=== PATIENT | male | born 1945 | race Caucasian/White ===

== ENCOUNTER 2021-05-31 10:38 | Inpatient (IN) | payer MEDICARE, SELFPAY ==
[2021-05-31] VITALS (7 sets, daily range): BP systolic 145–174; BP diastolic 78–94; PULSE 68–98; RESP 13–24; TEMP 36.3–37.4; O2SAT 95–97; BMI 25.2
--- NOTE | ~2021-05-31 | XR_ITS ---
EXAMINATION: XR CHEST CLINICAL INFORMATION: Weakness COMPARISON: None TECHNIQUE: Frontal view of the chest was obtained. FINDINGS: The cardiac silhouette is upper normal in size. The thoracic aorta is calcified and tortuous. Hilar contours are unremarkable. There is atelectasis at the lung bases. No definite pneumonia is seen. There is no pleural effusion or pneumothorax. There are degenerative changes of the spine and shoulder joints. XR/XR chest 1V IMPRESSION: No evidence for acute disease in the chest. Bibasilar atelectasis. No definite pneumonia is seen.
--- NOTE | ~2021-05-31 | CT_ITS ---
EXAMINATION: CT HEAD WITHOUT CONTRAST CLINICAL INFORMATION: Aggressive behavior COMPARISON: None TECHNIQUE: Contiguous axial imaging was performed from the skull base to vertex without intravenous administration of contrast. This CT examination was performed using dose optimization techniques as appropriate, variously including the following: *Automated exposure control *Adjustment of mA and/or kV according to patient size (this includes techniques or standardized protocols for targeted exams where dose is matched to indication/reason for exam; i.e. extremities or head) *Use of iterative reconstruction technique DLP: 721 mGy-cm FINDINGS: There is no evidence of an extra-axial collection. There is no evidence of intra-axial or extra-axial hemorrhage. Ventricles and extra-axial CSF spaces are prominent suggestive of generalized atrophy. There is nonspecific periventricular white matter disease. No mass, mass effect or infarct is seen. There is evidence of atherosclerotic disease. There is arthritis at the left temporomandibular joint. Review of bone windows is otherwise normal. Visualized paranasal sinuses, mastoid air cells and middle ears are clear. CT/CT head/brain wo con IMPRESSION: No acute intracranial pathology. Generalized atrophy and nonspecific periventricular white matter disease.
--- NOTE | ~2021-05-31 | US_ITS ---
EXAMINATION: US ABDOMEN LIMITED CLINICAL INFORMATION: Elevated LFTs with the right upper quadrant pain. COMPARISON: None TECHNIQUE: Real-time imaging of the right upper quadrant abdominal viscera. FINDINGS: PANCREAS: The head and part of the body pancreas is homogeneous in echotexture. No focal lesion seen.. LIVER: The liver is enlarged measuring 20.4 cm The liver contour is normal. Parenchymal echogenicity is increased. No focal hepatic lesion. There is no intrahepatic biliary duct dilatation seen. GALLBLADDER: The gallbladder is slightly contracted without evidence of stones, sludge, polyps, wall thickening or pericholecystic fluid. COMMON BILE DUCT: Normal in caliber measuring 0.4 cm in diameter. RIGHT KIDNEY: Normal. No hydronephrosis. No renal calculi or focal parenchymal lesions. The kidney measures 10.2 cm in maximum dimension. FREE FLUID: None. US/US abdomen limited IMPRESSION: Mild hepatic steatosis and hepatomegaly. No focal lesion seen. Visualized slightly contracted gallbladder, CBD and right kidneys unremarkable.
[2021-05-31 11:16] LABS: Glucose, Whole Blood 237 mg/dL (60-115)
--- NOTE | 2021-05-31 11:17 | ED_ITS ---
HPI - General Adult General Chief complaint: General Medical Stated complaint: behavioral problems Time Seen by Provider: 05/31/21 11:06 Source: patient, EMS and interpreter for the deaf Mode of arrival: EMS Limitations: altered mental status (dementia) History of Present Illness MD complaint: increased aggression Onset (ago): week(s) (2 but much worse over past 2 days) Severity: moderate Relieving factors: none Exacerbating factors: none Associated symptoms: denies other symptoms Treatments prior to arrival: none Related Data Home Medications Medication Instructions Recorded Confirmed acetaminophen 500 mg tablet 1,000 mg PO Q8H PRN 05/31/21 05/31/21 cholecalciferol (vitamin D3) 50 50 mcg PO DAILY 05/31/21 05/31/21 mcg (2,000 unit) capsule (Vitamin D3) dulaglutide 0.75 mg/0.5 mL 0.75 mg SUBCUT QWEEK 05/31/21 05/31/21 subcutaneous pen injector (Trulicity) famotidine 40 mg tablet 40 mg PO DAILY 05/31/21 05/31/21 finasteride 5 mg tablet (Proscar) 5 mg PO DAILY 05/31/21 05/31/21 menthol 5 % topical patch (Icy Hot 1 patch TOPICAL DAILY 05/31/21 05/31/21 (menthol)) metoprolol succinate 100 mg 150 mg PO DAILY 05/31/21 05/31/21 tablet,extended release 24 hr multivitamin 1 tab PO DAILY 05/31/21 05/31/21 nitroglycerin 0.4 mg sublingual 0.4 mg SUBLINGUAL Q5M PRN 05/31/21 05/31/21 tablet pantoprazole 40 mg tablet,delayed 40 mg PO DAILY 05/31/21 05/31/21 release (Protonix) psyllium husk 3.4 gram/5.4 gram 3.4 g PO MOWEFR@0900 05/31/21 05/31/21 oral powder (Metamucil) quetiapine 25 mg tablet 25 mg PO BEDTIME 05/31/21 05/31/21 tamsulosin 0.4 mg capsule (Flomax) 0.4 mg PO DAILY@1700 05/31/21 05/31/21 trazodone 50 mg tablet 25 mg PO DAILY 05/31/21 05/31/21 trazodone 50 mg tablet 50 mg PO BEDTIME 05/31/21 05/31/21 Allergies Allergy/AdvReac Type Severity Reaction Status Date / Time No Known Allergies Allergy Verified 05/31/21 11:23 Review of Systems Review of Systems: ROS unable to be obtained due to altered mental status PMFSH Past Medical History Medical History Dementia Depression Diabetic acetonemia Hypertension Social History Social History (Updated 05/31/21 @ 11:24 by Shayy Peck DO) Housing: Assisted Living Facility Patient Tobacco Use Status: Tobacco use Unknown Advance Directives: Yes Advance Directives on File: Yes Advance Directives Date on File: 05/31/21 Physical Exam Vital Signs: Vital Signs: Last Vital Signs Temp 99.3 F 05/31/21 14:00 Pulse 70 05/31/21 14:00 Resp 13 05/31/21 14:00 BP 145/88 H 05/31/21 14:00 Pulse Ox 96 05/31/21 14:00 BMI result Body Mass Index 25.2 Appearance: Alert. Oriented X2 (place and person). No acute distress. calm but then gets upset and states they took something from him - unsure what that something is it is round Eyes: Pupils equal, round and reactive to light. ENT: Pharynx normal. Neck: Normal inspection. Neck supple. CVS: Normal heart rate and rhythm. Pulses normal. Respiratory: No respiratory distress. Breath sounds normal. Abdomen: Soft and non-tender. no grimace Skin: Skin warm and dry. Normal skin color. Normal skin turgor. Extremities: No lower extremity edema. No calf ttp Neuro: Oriented X 2. No motor deficit. No sensory deficit. Course Course Course Narrative: sister called RN and notes he was recently put on valium for anxiety and he seems more agitated on medication delta trop negative nonspecific EKG changes - no chest pain doubt ACS - medically cleared at this time for [facility] Physician observation started at 250pm. Patient placed in physician observation because the patient needed more time for crisis assessment given agitation and behavior changes following recent benzodiazepine use. At the time observation was started the patient's vitals were stable, patient is alert and but confused he is calm, Neuro: nonfocal, CV RRR, Lungs clear Medical Decision Making MDM Narrative Medical decision making narrative: 75 yo male with dementia , HTN at assisted living facility here with c/o increased aggression for two weeks sent for evaluation of [facility] at this time will need labs, UA, CXR, CT head to medically clear - if no medical issues will refer to CARE team. Lab Data Result diagrams: 05/31/21 11:48 05/31/21 11:48 Labs: Lab Results 05/31/21 05/31/21 05/31/21 Range/Units 11:13 11:48 11:48 WBC 5.5 (4.8-10.8) X10*3/uL RBC 4.71 (4.60-5.80) X10*6/uL Hgb 14.5 (14.0-18.0) g/dl Hct 41.6 L (42.0-52.0) % MCV 88.3 (80.0-98.0) fL MCH 30.8 (27.0-33.0) pg MCHC 34.9 (31.0-36.0) g/dl RDW 12.3 (11.0-16.0) % Plt Count 245 (160-400) X10*3/uL MPV 9.5 (9.4-12.4) fL Immature Gran % (Auto) 0.4 (0.0-0.4) % Neut % (Auto) 72.3 (45-73) % Lymph % (Auto) 13.5 L (20-40) % [place] % (Auto) 10.6 (2-11) % Eos % (Auto) 2.3 (0-4) % Baso % (Auto) 0.9 (0-2) % Lymph # (Auto) 0.8 L (1.2-4.9) X10*3/uL [place] # (Auto) 0.6 (0.1-1.2) X10*3/uL Eos # (Auto) 0.1 (0.0-0.4) X10*3/uL Baso # (Auto) 0.1 (0.0-0.2) X10*3/uL Abs Immat Gran (auto) 0.02 (0.00-0.03) X10*3/uL Absolute Neuts (auto) 4.0 (2.0-8.3) x10*3/uL Absolute Nucleated RBC 0.000 (0.0-0.012) X10*3/uL Nucleated RBC % (auto) 0.0 (0.0-0.2) /100WBC Sodium 135 (135-145) mmol/L Potassium 3.6 (3.3-5.1) mmol/L Chloride 103 (96-108) mmol/L Carbon Dioxide 22 (22-29) mmol/L Anion Gap 14 (12-20) BUN 10 (9-16) mg/dL Creatinine 0.79 (0.5-1.4) mg/dL Estim Creat Clear Calc 71.7 Estimated GFR > 60 POC Glucose 237 H (60-115) mg/dL Random Glucose 254 H (60-115) mg/dL Calcium 9.4 (8.4-10.2) mg/dL Magnesium 1.6 (1.6-2.6) mg/dL Total Bilirubin 1.1 H (0.0-1.0) mg/dL Direct Bilirubin 0.4 (0.0-0.5) mg/dL AST 77 H (5-37) U/L ALT 67 H (0-40) U/L Alkaline Phosphatase 79 (39-117) U/L Ammonia (13-55) umol/L Troponin I High Sens (<3.5-35.0) ng/L Total Protein 6.4 L (6.5-8.0) g/dL Albumin 4.2 (3.5-5.0) g/dL TSH (0.32-4.0) uIU/mL Urine Color Urine Appearance Urine pH (5.0-8.0) Ur Specific [place] (1.005-1.025) Urine Protein (NEG-TRACE) MG/DL Urine Glucose (UA) (NEG) MG/DL Urine Ketones (NEG) MG/DL Urine Blood (NEG) Urine Nitrite (NEG) Ur Leukocyte Esterase (NEG) Salicylates < 5.0 L (15-30) mg/dL Acetaminophen < 1 (<30) mcg/mL COVID-19 ([facility]) (Negative) COVID-19 Clin Com 05/31/21 05/31/21 05/31/21 Range/Units 11:48 11:48 11:48 WBC (4.8-10.8) X10*3/uL RBC (4.60-5.80) X10*6/uL Hgb (14.0-18.0) g/dl Hct (42.0-52.0) % MCV (80.0-98.0) fL MCH (27.0-33.0) pg MCHC (31.0-36.0) g/dl RDW (11.0-16.0) % Plt Count (160-400) X10*3/uL MPV (9.4-12.4) fL Immature Gran % (Auto) (0.0-0.4) % Neut % (Auto) (45-73) % Lymph % (Auto) (20-40) % [place] % (Auto) (2-11) % Eos % (Auto) (0-4) % Baso % (Auto) (0-2) % Lymph # (Auto) (1.2-4.9) X10*3/uL [place] # (Auto) (0.1-1.2) X10*3/uL Eos # (Auto) (0.0-0.4) X10*3/uL Baso # (Auto) (0.0-0.2) X10*3/uL Abs Immat Gran (auto) (0.00-0.03) X10*3/uL Absolute Neuts (auto) (2.0-8.3) x10*3/uL Absolute Nucleated RBC (0.0-0.012) X10*3/uL Nucleated RBC % (auto) (0.0-0.2) /100WBC Sodium (135-145) mmol/L Potassium (3.3-5.1) mmol/L Chloride (96-108) mmol/L Carbon Dioxide (22-29) mmol/L Anion Gap (12-20) BUN (9-16) mg/dL Creatinine (0.5-1.4) mg/dL Estim Creat Clear Calc Estimated GFR POC Glucose (60-115) mg/dL Random Glucose (60-115) mg/dL Calcium (8.4-10.2) mg/dL Magnesium (1.6-2.6) mg/dL Total Bilirubin (0.0-1.0) mg/dL Direct Bilirubin (0.0-0.5) mg/dL AST (5-37) U/L ALT (0-40) U/L Alkaline Phosphatase (39-117) U/L Ammonia 28 (13-55) umol/L Troponin I High Sens 8.4 (<3.5-35.0) ng/L Total Protein (6.5-8.0) g/dL Albumin (3.5-5.0) g/dL TSH (0.32-4.0) uIU/mL Urine Color Urine Appearance Urine pH (5.0-8.0) Ur Specific [place] (1.005-1.025) Urine Protein (NEG-TRACE) MG/DL Urine Glucose (UA) (NEG) MG/DL Urine Ketones (NEG) MG/DL Urine Blood (NEG) Urine Nitrite (NEG) Ur Leukocyte Esterase (NEG) Salicylates (15-30) mg/dL Acetaminophen (<30) mcg/mL COVID-19 ([facility]) Negative (Negative) COVID-19 Clin Com See Note 05/31/21 05/31/21 05/31/21 Range/Units 11:48 12:45 14:17 WBC (4.8-10.8) X10*3/uL RBC (4.60-5.80) X10*6/uL Hgb (14.0-18.0) g/dl Hct (42.0-52.0) % MCV (80.0-98.0) fL MCH (27.0-33.0) pg MCHC (31.0-36.0) g/dl RDW (11.0-16.0) % Plt Count (160-400) X10*3/uL MPV (9.4-12.4) fL Immature Gran % (Auto) (0.0-0.4) % Neut % (Auto) (45-73) % Lymph % (Auto) (20-40) % [place] % (Auto) (2-11) % Eos % (Auto) (0-4) % Baso % (Auto) (0-2) % Lymph # (Auto) (1.2-4.9) X10*3/uL [place] # (Auto) (0.1-1.2) X10*3/uL Eos # (Auto) (0.0-0.4) X10*3/uL Baso # (Auto) (0.0-0.2) X10*3/uL Abs Immat Gran (auto) (0.00-0.03) X10*3/uL Absolute Neuts (auto) (2.0-8.3) x10*3/uL Absolute Nucleated RBC (0.0-0.012) X10*3/uL Nucleated RBC % (auto) (0.0-0.2) /100WBC Sodium (135-145) mmol/L Potassium (3.3-5.1) mmol/L Chloride (96-108) mmol/L Carbon Dioxide (22-29) mmol/L Anion Gap (12-20) BUN (9-16) mg/dL Creatinine (0.5-1.4) mg/dL Estim Creat Clear Calc Estimated GFR POC Glucose (60-115) mg/dL Random Glucose (60-115) mg/dL Calcium (8.4-10.2) mg/dL Magnesium (1.6-2.6) mg/dL Total Bilirubin (0.0-1.0) mg/dL Direct Bilirubin (0.0-0.5) mg/dL AST (5-37) U/L ALT (0-40) U/L Alkaline Phosphatase (39-117) U/L Ammonia (13-55) umol/L Troponin I High Sens 10.3 (<3.5-35.0) ng/L Total Protein (6.5-8.0) g/dL Albumin (3.5-5.0) g/dL TSH 2.57 (0.32-4.0) uIU/mL Urine Color YELLOW Urine Appearance CLEAR Urine pH 6.0 (5.0-8.0) Ur Specific [place] 1.025 (1.005-1.025) Urine Protein TRACE (NEG-TRACE) MG/DL Urine Glucose (UA) 500 H (NEG) MG/DL Urine Ketones 40 (NEG) MG/DL Urine Blood NEG (NEG) Urine Nitrite NEG (NEG) Ur Leukocyte Esterase NEG (NEG) Salicylates (15-30) mg/dL Acetaminophen (<30) mcg/mL COVID-19 ([facility]) (Negative) COVID-19 Clin Com ECG Data Attestation: I personally reviewed and interpreted this ECG as follows: Interpretation: Rate: 84 Rhythm: NSR with 1st degree AVB [place]: left Normal P waves. Normal BIBI. Normal QRS complex. ST T wave : no SUZETTE< nonspecific - inverted t waves V4-V6 I and aVL qTC: slightly prolonged prior studies: none The study has been interpreted contemporaneously by me. . Discharge Plan Discharge Clinical Impression: Aggression, Dementia Patient Disposition: Still a Patient Prescriptions: No Action multivitamin Tablet 1 tab PO DAILY RF: 0 quetiapine 25 mg Tablet 25 mg PO BEDTIME RF: 0 trazodone 50 mg Tablet 25 mg PO DAILY RF: 0 trazodone 50 mg Tablet 50 mg PO BEDTIME RF: 0 famotidine 40 mg Tablet 40 mg PO DAILY RF: 0 metoprolol succinate 100 mg Tablet Extended Release 24 Hr 150 mg PO DAILY RF: 0 acetaminophen 500 mg Tablet 1,000 mg PO Q8H PRN (Reason: Pain (Scale Score 7-10)) RF: 0 tamsulosin [Flomax] 0.4 mg Capsule 0.4 mg PO DAILY@1700 RF: 0 pantoprazole [Protonix] 40 mg Tablet,Delayed Release (Dr/Ec) 40 mg PO DAILY RF: 0 nitroglycerin 0.4 mg Tablet, Sublingual 0.4 mg SUBLINGUAL Q5M PRN (Reason: Chest Pain) RF: 0 finasteride [Proscar] 5 mg Tablet 5 mg PO DAILY RF: 0 Icy Hot (menthol) 5 % Adhesive Patch,Medicated 1 patch TOPICAL DAILY RF: 0 cholecalciferol (vitamin D3) [Vitamin D3] 50 mcg (2,000 unit) Capsule 50 mcg PO DAILY RF: 0 Trulicity 0.75 mg/0.5 mL Pen Injector 0.75 mg SUBCUT QWEEK RF: 0 Metamucil 3.4 gram/5.4 gram Powder 3.4 g PO MOWEFR@0900 RF: 0
--- NOTE | 2021-05-31 11:19 | ECG_ITS ---
Test Reason : confusion Blood Pressure : / mmHG Vent. Rate : 084 BPM Atrial Rate : 084 BPM P-R Int : 208 ms QRS Dur : 094 ms QT Int : 414 ms P-R-T Axes : 038 -05 111 degrees QTc Int : 489 ms Sinus rhythm with Premature atrial complexes Nonspecific T wave abnormality Prolonged QT Abnormal ECG No previous ECGs available Referred By: Shayy Peck Electronically Signed By:AURELIA GARCIA MD
[2021-05-31 11:58] LABS: MANUAL DIFF FLAG NO
[2021-05-31 11:59] LABS: Basophils Absolute Auto 0.1 X10*3/uL (0.0-0.2); Basophils Percent Auto 0.9 % (0-2); Eosinophils Absolute Auto 0.1 X10*3/uL (0.0-0.4); Eosinophils Percent Auto 2.3 % (0-4); Hematocrit 41.6 % (42.0-52.0); Hemoglobin 14.5 g/dl (14.0-18.0); Imm Gran Abs Auto 0.02 X10*3/uL (0.00-0.03); Imm Gran Pct Auto 0.4 % (0.0-0.4); Lymphocytes Absolute Auto 0.8 X10*3/uL (1.2-4.9); Lymphocytes Percent Auto 13.5 % (20-40); Mean Corpuscular HGB Conc 34.9 g/dl (31.0-36.0); Mean Corpuscular Hemoglobin 30.8 pg (27.0-33.0); Mean Corpuscular Volume 88.3 fL (80.0-98.0); Mean Platelet Volume 9.5 fL (9.4-12.4); Monocytes Absolute Auto 0.6 X10*3/uL (0.1-1.2); Monocytes Percent Auto 10.6 % (2-11); Neutrophils Percent Auto 72.3 % (45-73); Platelet Count 245 X10*3/uL (160-400); Red Blood Count 4.71 X10*6/uL (4.60-5.80); Red Cell Distribution Width 12.3 % (11.0-16.0); White Blood Count 5.5 X10*3/uL (4.8-10.8)
[2021-05-31 12:03] LABS: Ammonia 28 umol/L (13-55)
--- NOTE | 2021-05-31 12:06 | PC.NURSE ---
contact sister melquiades olivier [phone]- sister stated in a phone call that pt had started valum last and he began hallucinating and thinking somebody was robbing him, all items were accounted for. she stated the patient had been having panic attacks due to new onset of anxiety that began in february.
[2021-05-31 12:15] LABS: Acetaminophen LAB < 1 mcg/mL (<30); Alanine Aminotransferase 67 U/L (0-40); Albumin Level 4.2 g/dL (3.5-5.0); Alkaline Phosphatase 79 U/L (39-117); Anion Gap 14 (12-20); Aspartate Amino Transferase 77 U/L (5-37); Bilirubin Direct 0.4 mg/dL (0.0-0.5); Bilirubin Total 1.1 mg/dL (0.0-1.0); Blood Urea Nitrogen 10 mg/dL (9-16); Calcium 9.4 mg/dL (8.4-10.2); Carbon Dioxide 22 mmol/L (22-29); Chloride 103 mmol/L (96-108); Creatinine Clr Calc Pharmacy 71.7; Estimated Glomerular Filt Rate > 60; Glucose Random 254 mg/dL (60-115); Magnesium 1.6 mg/dL (1.6-2.6); Potassium 3.6 mmol/L (3.3-5.1); Sodium 135 mmol/L (135-145); Total Protein 6.4 g/dL (6.5-8.0)
[2021-05-31 12:19] LABS: COVID-19 Test Negative (Negative)
--- NOTE | 2021-05-31 12:22 | PHA.MEDREC ---
Pharmacy Consult ? Medication Reconciliation Pharmacy has completed the medication reconciliation. Med rec based on list from the facility
[2021-05-31 12:25] LABS: Troponin-I High Sensitivity 8.4 ng/L (<3.5-35.0)
[2021-05-31 12:33] LABS: TSH reflex Free T4 2.57 uIU/mL (0.32-4.0)
[2021-05-31 12:56] LABS: Appearance Urine CLEAR; Color Urine YELLOW; Glucose Urine UA 500 MG/DL (NEG); Leukocyte Esterase Urine NEG (NEG); Nitrite Urine NEG (NEG); Specific Gravity - Urine 1.025 (1.005-1.025); Urine Blood NEG (NEG); Urine Ketones 40 MG/DL (NEG); Urine Protein TRACE MG/DL (NEG-TRACE)
[2021-05-31] MEDS: Magnesium Sulfate/H2O 2 GM/50 ML PIGGYBACK IV (13:15)
[2021-05-31] MEDS: 0.9 % Sodium Chloride 500 ML IV (13:16)
--- NOTE | 2021-05-31 13:16 | PC.NURSE ---
pt medicated per order
[2021-05-31 13:45] LABS: Salicylate < 5.0 mg/dL (15-30)
[2021-05-31 14:42] LABS: Troponin-I High Sensitivity 10.3 ng/L (<3.5-35.0)
--- NOTE | 2021-05-31 16:03 | PC.NURSE ---
patient sleeping, wakes to verbal stimulus, cardiac cath technician intact- nsr 70s, vss, call read within reach, will continue to monitor.
--- NOTE | 2021-05-31 16:07 | PC.NURSE ---
followed by [facility] [phone]
--- NOTE | 2021-05-31 17:49 | PC.NURSE ---
marjorien evaluated patient and spoke with patient sister, patient will become inpt for psych and goto the [facility] when bed is available
--- NOTE | 2021-05-31 21:03 | PC.NURSE ---
PATIENT WAS REPOSITION OFF HIS BOTTOM.
--- NOTE | 2021-05-31 22:20 | PC.NURSE ---
called floor to give report, will call us back
[2021-05-31] MEDS: QUEtiapine Fumarate 25 MG TABLET PO (23:34)
[2021-05-31] MEDS: traZODone HCL 50 MG TABLET PO (23:34)
[2021-06-01] MEDS: traZODone HCL 50 MG TABLET PO ×2 (01:00→20:25)
[2021-06-01 03:58] VITALS: BP 167/117; PULSE 92; RESP 20; TEMP 36.5; O2SAT 96
--- NOTE | 2021-06-01 04:12 | PC.ADMIT ---
Admitted these 75 y.o.monolingual [place] speaking,male, patient from ED w/ presenting problem of increased agitation and hallucination,that there's someone in his apt.who is trying to steal his things.His behaviors started after he was started on Valium last week.Upon admission here in the unit,Patient is alert and oriented to self only.Patient is very agitated and very anxious.Unable to do the admission process,pt. is uncooperative due to agitation.Skin is warm and dry,no open areas noted. refused a full skin assessment.Patient refused to give to staff his belongings.Patient has no c/o pain.Patient given Seroquel 25mg. and trazodone 50mg w/ little effect.Given another Trazodone 50mg. w/ some effect.Pt. has a sitter for safety.PT. is med compliant.DR. Miles Liriano and HCP-Angella Astorga notified of admission.Orders placed by Dr. Liriano.We will continue to monitor patient.
--- NOTE | 2021-06-01 12:37 | HO.PSYADMNOT ---
HPI Date of Service: 06/01/21 Chief Complaint: Psychosis HPI Narrative: pt brought to hospital after exhibiting increased paranoia at assisted living facility, with combativeness toward staff there. he had taken scissors from his day program with which to defend himself. developmentally delayed. he had been puit on valium 5 TID by PCP about amonth ago and then started having falls so the dosing was decreased to 2 TID on 05/27. sister reports his paranoia seemed to develop with the decrease in dose. on interview with MD, pt not able to rouse himself for more than a few moments at a time. he seemed to indicate he was feeling anxious. per sitter, pt was up al lnight, hypervigilantly checking his belongings on a regular basis. he had just fallen asleep when MD came to see him this morning. per staff, pt paranoid, refused meds since arrival. Past Psychiatric History: h/o 1 admission to [facility] when he had a breakdown after his father was Dxed with cancer. no known h/o SI/HI/SA/SIB/HIB. developmentally delayed seen at [facility] Medical Evaluation Reviewed: Yes [facility] Medical History Dementia Depression Diabetic acetonemia Hypertension Family History: unknown Social History: retired institutional custodian. lives in an assisted living facility. latvian speaking. has a sister who is involved in his care. raised by his mother and father in [place] until 1963, when they immigrated to the [place]. Substance History: no known substance use Trauma History: none known Diagnostics Vital Signs (24Hr): Vital Signs - 24 hr 05/31/21 14:00 05/31/21 16:00 05/31/21 18:00 Temperature 99.3 F 98.1 F 98.2 F Pulse Rate 70 72 74 Respiratory Rate 13 18 18 Blood Pressure 145/88 H 164/90 H 162/93 H Pulse Oximetry 96 96 96 05/31/21 19:40 05/31/21 21:01 06/01/21 03:58 Temperature 98.5 F 97.4 F 97.7 F Pulse Rate 78 68 92 Respiratory Rate 18 16 20 Blood Pressure 159/78 H 158/81 H 167/117 H Pulse Oximetry 97 95 96 BMI result Body Mass Index 25.2 Labs Results: 05/31/21 11:48 05/31/21 11:48 Labs: Laboratory Results - last 48 hr 05/31/21 05/31/21 05/31/21 11:13 11:48 11:48 WBC 5.5 RBC 4.71 Hgb 14.5 Hct 41.6 L MCV 88.3 MCH 30.8 MCHC 34.9 RDW 12.3 Plt Count 245 MPV 9.5 Immature Gran % (Auto) 0.4 Neut % (Auto) 72.3 Lymph % (Auto) 13.5 L Cochran % (Auto) 10.6 Eos % (Auto) 2.3 Baso % (Auto) 0.9 Lymph # (Auto) 0.8 L [place]chran # (Auto) 0.6 Eos # (Auto) 0.1 Baso # (Auto) 0.1 Abs Immat Gran (auto) 0.02 Absolute Neuts (auto) 4.0 Absolute Nucleated RBC 0.000 Nucleated RBC % (auto) 0.0 Sodium 135 Potassium 3.6 Chloride 103 Carbon Dioxide 22 Anion Gap 14 BUN 10 Creatinine 0.79 Estim Creat Clear Calc 71.7 Estimated GFR > 60 POC Glucose 237 H Random Glucose 254 H Calcium 9.4 Magnesium 1.6 Total Bilirubin 1.1 H Direct Bilirubin 0.4 AST 77 H ALT 67 H Alkaline Phosphatase 79 Ammonia Troponin I High Sens Total Protein 6.4 L Albumin 4.2 TSH Urine Color Urine Appearance Urine pH Ur Specific [place] Urine Protein Urine Glucose (UA) Urine Ketones Urine Blood Urine Nitrite Ur Leukocyte Esterase Salicylates < 5.0 L Acetaminophen < 1 COVID-19 ([facility]) COVID-19 Clin Com 05/31/21 05/31/21 05/31/21 11:48 11:48 11:48 WBC RBC Hgb Hct MCV MCH MCHC RDW Plt Count MPV Immature Gran % (Auto) Neut % (Auto) Lymph % (Auto) Cochran % (Auto) Eos % (Auto) Baso % (Auto) Lymph # (Auto) Cochran # (Auto) Eos # (Auto) Baso # (Auto) Abs Immat Gran (auto) Absolute Neuts (auto) Absolute Nucleated RBC Nucleated RBC % (auto) Sodium Potassium Chloride Carbon Dioxide Anion Gap BUN Creatinine Estim Creat Clear Calc Estimated GFR POC Glucose Random Glucose Calcium Magnesium Total Bilirubin Direct Bilirubin AST ALT Alkaline Phosphatase Ammonia 28 Troponin I High Sens 8.4 Total Protein Albumin TSH Urine Color Urine Appearance Urine pH Ur Specific [place] Urine Protein Urine Glucose (UA) Urine Ketones Urine Blood Urine Nitrite Ur Leukocyte Esterase Salicylates Acetaminophen COVID-19 ([facility]) Negative COVID-19 Clin Com See Note 05/31/21 05/31/21 05/31/21 11:48 12:45 14:17 WBC RBC Hgb Hct MCV MCH MCHC RDW Plt Count MPV Immature Gran % (Auto) Neut % (Auto) Lymph % (Auto) Cochran % (Auto) Eos % (Auto) Baso % (Auto) Lymph # (Auto) Cochran # (Auto) Eos # (Auto) Baso # (Auto) Abs Immat Gran (auto) Absolute Neuts (auto) Absolute Nucleated RBC Nucleated RBC % (auto) Sodium Potassium Chloride Carbon Dioxide Anion Gap BUN Creatinine Estim Creat Clear Calc Estimated GFR POC Glucose Random Glucose Calcium Magnesium Total Bilirubin Direct Bilirubin AST ALT Alkaline Phosphatase Ammonia Troponin I High Sens 10.3 Total Protein Albumin TSH 2.57 Urine Color YELLOW Urine Appearance CLEAR Urine pH 6.0 Ur Specific [place] 1.025 Urine Protein TRACE Urine Glucose (UA) 500 H Urine Ketones 40 Urine Blood NEG Urine Nitrite NEG Ur Leukocyte Esterase NEG Salicylates Acetaminophen COVID-19 ([facility]) COVID-19 Clin Com Imaging Radiology Impressions: ITS Impressions Chest X-Ray 05/31/21 12:18 IMPRESSION: No evidence for acute disease in the chest. Bibasilar atelectasis. No definite pneumonia is seen. Head CT 05/31/21 12:59 IMPRESSION: No acute intracranial pathology. Generalized atrophy and nonspecific periventricular white matter disease. Abdomen Ultrasound 05/31/21 13:10 IMPRESSION: Mild hepatic steatosis and hepatomegaly. No focal lesion seen. Visualized slightly contracted gallbladder, CBD and right kidneys unremarkable. Meds/Allergies Meds Home Medications Acetaminophen (Acetaminophen 325 Mg Tablet) 975 mg PO Q8H PRN PRN Reason: Pain (Scale Score 7-10) Acetaminophen (Acetaminophen 325 Mg Tablet) 650 mg PO Q6H PRN PRN Reason: Headache/Pain Mild Scale (1-3) Al Hydroxide/Mg Hydroxide (Magnesium Hydrox/Alum Hydrox 30 Ml Oral.Susp) 30 ml PO Q6H PRN PRN Reason: Heartburn/Nausea Famotidine (Famotidine 20 Mg Tablet) 40 mg PO DAILY [facility] Last Admin: 06/01/21 11:38 Dose: Not Given Documented by: Finasteride (Finasteride 5 Mg Tablet) 5 mg PO DAILY [facility] Last Admin: 06/01/21 11:38 Dose: Not Given Documented by: Magnesium Hydroxide (Milk Of Magnesia 30 Ml Oral.Susp) 30 ml PO DAILY PRN PRN Reason: Constipation Metoprolol Succinate (Metoprolol Succinate Er 50 Mg Tab.Er.24h) 150 mg PO DAILY [facility]; Protocol Last Admin: 06/01/21 11:38 Dose: Not Given Documented by: Multivitamins/Vitamin C (Multivitamin Tablet) 1 tab PO DAILY [facility] Last Admin: 06/01/21 11:38 Dose: Not Given Documented by: Nitroglycerin (Nitroglycerin 0.4 Mg Tab.Subl) 0.4 mg SUBLINGUAL Q5M PRN PRN Reason: Chest Pain Non-Formulary Medication (Dulaglutide [Trulicity]) 0.75 mg SUBCUT Q7D [facility] Non-Formulary Medication (Menthol [Icy Hot (Menthol)]) 1 patch TOPICAL DAILY [facility] Omeprazole (Omeprazole 20 Mg Capsule.Dr) 20 mg PO DAILY [facility] Last Admin: 06/01/21 11:39 Dose: Not Given Documented by: Psyllium Hydrophilic Mucilloid (Psyllium Seed 3.4 Gm Powd.Pack) 3.4 gm PO MOWEFR@0900 [facility] Quetiapine Fumarate (Quetiapine Fumarate 25 Mg Tablet) 25 mg PO BEDTIME [facility] Last Admin: 05/31/21 23:34 Dose: 25 mg Documented by: Tamsulosin HCl (Tamsulosin Hcl 0.4 Mg Capsule) 0.4 mg PO DAILY@1700 [facility] Trazodone HCl (Trazodone Hcl 25 Mg Halftab) 25 mg PO DAILY [facility] Last Admin: 06/01/21 11:39 Dose: Not Given Documented by: Trazodone HCl (Trazodone Hcl 50 Mg Tablet) 50 mg PO BEDTIME [facility] Last Admin: 05/31/21 23:34 Dose: 50 mg Documented by: Trazodone HCl (Trazodone Hcl 50 Mg Tablet) 50 mg PO BEDTIME PRN PRN Reason: Insomnia Last Admin: 06/01/21 01:00 Dose: 50 mg Documented by: Vitamin D (Cholecalciferol (Vitamin D3) 25 Mcg Tablet) 50 mcg PO DAILY [facility] Last Admin: 06/01/21 11:38 Dose: Not Given Documented by: Allergies Allergies Allergy/AdvReac Type Severity Reaction Status Date / Time No Known Allergies Allergy Verified 05/31/21 11:23 Mental Status Exam Mental Status Exam Narrative: somnolent. thick accent, garbled speech. unable to remain awake for interview. stated he was feeling scared/anxious. hospital attire. minimally cooperative. speech soft, garbled, single-word answers. thoughts linear and logical as best as could be made out. affect constricted. mood anxious. no SI/HI/AVH expressed. Assessment & Plan Assessment & Plan (1) Psychosis: Status: Acute Qualifiers: Psychosis type: unspecified psychosis type Qualified Code(s): F29 - Unspecified psychosis not due to a substance or known physiological condition Code(s): F29 - Unspecified psychosis not due to a substance or known physiological condition (2) Dementia: Status: Acute Qualifiers: Dementia behavioral disturbance: with behavioral disturbance Dementia type: unspecified type Qualified Code(s): F03.91 - Unspecified dementia with behavioral disturbance Code(s): F03.90 - Unspecified dementia without behavioral disturbance Assessment and Plan: restart low-dose valium in the event he is experiencing a withdrawal syndrome. slowly taper. increase HS seroquel to help with sleep and paranoia. Reason for continued inpatient stay Substantial Risk for: harm to others and inability to function
[2021-06-01 18:00] VITALS: BP 174/79; PULSE 75; RESP 18; TEMP 36.4; O2SAT 94
[2021-06-01] MEDS: diazePAM 2 MG TABLET PO (20:24)
[2021-06-01] MEDS: QUEtiapine Fumarate 50 MG TABLET PO (20:24)
[2021-06-01 22:47] VITALS: BP 145/75; PULSE 57
[2021-06-02 06:00] VITALS: BP 140/70; PULSE 82; RESP 16; TEMP 36; O2SAT 98
[2021-06-02] MEDS: traZODone HCL 25 MG HALFTAB PO (08:39)
[2021-06-02] MEDS: diazePAM 2 MG TABLET PO ×3 (08:40→20:31)
--- NOTE | 2021-06-02 12:15 | HO.PSYCHPN ---
Subjective Subjective Date of Service: 06/02/21 Reason For Visit: Psychosis Interim History: pt found lying in bed awake, clutching a plastic bag with personal effects in it tightly in his fist. indicates he needs to urinate, staff help him. MD returns later and attempts to speak with pt. on being asked what is bothering him he speaks unintelligibly to this information writer and gestures toward the lower half of his body. MD attempts to get him to repeat himself, but he lays motionless and mute. per staff, pt took several medications this morning. spending much of his time in bed. refusing POC. eating well. slept last NOC. Mental Status Exam Mental Status Exam Narrative: alert and awake. thick accent, garbled speech. hospital attire. minimally cooperative. speech soft, garbled. thoughts unable to be assessed; pt largely mute and otherwise unintelligible. affect constricted. mood unknown. no SI/HI/AVH expressed. Diagnostics Vital Signs (24Hr): Vital Signs - 24 hr 06/01/21 18:00 06/01/21 22:47 06/02/21 06:00 Temperature 97.6 F 96.8 F Pulse Rate 75 57 82 Respiratory Rate 18 16 Blood Pressure 174/79 H 145/75 H 140/70 H Pulse Oximetry 94 98 BMI result Body Mass Index 25.2 Labs Results: 05/31/21 11:48 05/31/21 11:48 Labs: Laboratory Results - last 48 hr 05/31/21 05/31/21 05/31/21 11:48 11:48 11:48 Sodium 135 Potassium 3.6 Chloride 103 Carbon Dioxide 22 Anion Gap 14 BUN 10 Creatinine 0.79 Estim Creat Clear Calc 71.7 Estimated GFR > 60 Random Glucose 254 H Calcium 9.4 Magnesium 1.6 Total Bilirubin 1.1 H Direct Bilirubin 0.4 AST 77 H ALT 67 H Alkaline Phosphatase 79 Troponin I High Sens 8.4 Total Protein 6.4 L Albumin 4.2 TSH Urine Color Urine Appearance Urine pH Ur Specific [place] Urine Protein Urine Glucose (UA) Urine Ketones Urine Blood Urine Nitrite Ur Leukocyte Esterase Salicylates < 5.0 L Acetaminophen < 1 COVID-19 ([facility]) Negative COVID-19 Clin Com See Note 05/31/21 05/31/21 05/31/21 11:48 12:45 14:17 Sodium Potassium Chloride Carbon Dioxide Anion Gap BUN Creatinine Estim Creat Clear Calc Estimated GFR Random Glucose Calcium Magnesium Total Bilirubin Direct Bilirubin AST ALT Alkaline Phosphatase Troponin I High Sens 10.3 Total Protein Albumin TSH 2.57 Urine Color YELLOW Urine Appearance CLEAR Urine pH 6.0 Ur Specific [place] 1.025 Urine Protein TRACE Urine Glucose (UA) 500 H Urine Ketones 40 Urine Blood NEG Urine Nitrite NEG Ur Leukocyte Esterase NEG Salicylates Acetaminophen COVID-19 ([facility]) COVID-19 Clin Com Imaging Radiology Impressions: ITS Impressions Chest X-Ray 05/31/21 12:18 IMPRESSION: No evidence for acute disease in the chest. Bibasilar atelectasis. No definite pneumonia is seen. Head CT 05/31/21 12:59 IMPRESSION: No acute intracranial pathology. Generalized atrophy and nonspecific periventricular white matter disease. Abdomen Ultrasound 05/31/21 13:10 IMPRESSION: Mild hepatic steatosis and hepatomegaly. No focal lesion seen. Visualized slightly contracted gallbladder, CBD and right kidneys unremarkable. Medications Medications Current Medications Acetaminophen (Acetaminophen 325 Mg Tablet) 975 mg PO Q8H PRN PRN Reason: Pain (Scale Score 7-10) Acetaminophen (Acetaminophen 325 Mg Tablet) 650 mg PO Q6H PRN PRN Reason: Headache/Pain Mild Scale (1-3) Al Hydroxide/Mg Hydroxide (Magnesium Hydrox/Alum Hydrox 30 Ml Oral.Susp) 30 ml PO Q6H PRN PRN Reason: Heartburn/Nausea Diazepam (Diazepam 2 Mg Tablet) 2 mg PO TID [facility] Last Admin: 06/02/21 08:40 Dose: 2 mg Documented by: Famotidine (Famotidine 20 Mg Tablet) 40 mg PO DAILY [facility] Last Admin: 06/02/21 10:06 Dose: Not Given Documented by: Finasteride (Finasteride 5 Mg Tablet) 5 mg PO DAILY [facility] Last Admin: 06/02/21 10:07 Dose: Not Given Documented by: Magnesium Hydroxide (Milk Of Magnesia 30 Ml Oral.Susp) 30 ml PO DAILY PRN PRN Reason: Constipation Metoprolol Succinate (Metoprolol Succinate Er 50 Mg Tab.Er.24h) 150 mg PO DAILY [facility]; Protocol Last Admin: 06/02/21 10:07 Dose: Not Given Documented by: Multivitamins/Vitamin C (Multivitamin Tablet) 1 tab PO DAILY [facility] Last Admin: 06/02/21 10:07 Dose: Not Given Documented by: Nitroglycerin (Nitroglycerin 0.4 Mg Tab.Subl) 0.4 mg SUBLINGUAL Q5M PRN PRN Reason: Chest Pain Omeprazole (Omeprazole 20 Mg Capsule.Dr) 20 mg PO DAILY [facility] Last Admin: 06/02/21 10:07 Dose: Not Given Documented by: Psyllium Hydrophilic Mucilloid (Psyllium Seed 3.4 Gm Powd.Pack) 3.4 gm PO MOWEFR@0900 [facility] Quetiapine Fumarate (Quetiapine Fumarate 50 Mg Tablet) 50 mg PO BEDTIME [facility] Last Admin: 06/01/21 20:24 Dose: 50 mg Documented by: Tamsulosin HCl (Tamsulosin Hcl 0.4 Mg Capsule) 0.4 mg PO DAILY@1700 [facility] Last Admin: 06/01/21 17:51 Dose: Not Given Documented by: Trazodone HCl (Trazodone Hcl 25 Mg Halftab) 25 mg PO DAILY [facility] Last Admin: 06/02/21 08:39 Dose: 25 mg Documented by: Trazodone HCl (Trazodone Hcl 50 Mg Tablet) 50 mg PO BEDTIME [facility] Last Admin: 06/01/21 20:25 Dose: 50 mg Documented by: Trazodone HCl (Trazodone Hcl 50 Mg Tablet) 50 mg PO BEDTIME PRN PRN Reason: Insomnia Last Admin: 06/01/21 01:00 Dose: 50 mg Documented by: Vitamin D (Cholecalciferol (Vitamin D3) 25 Mcg Tablet) 50 mcg PO DAILY [facility] Last Admin: 06/02/21 10:06 Dose: Not Given Documented by: Allergies Allergies Allergy/AdvReac Type Severity Reaction Status Date / Time No Known Allergies Allergy Verified 05/31/21 11:23 Assessment & Plan Assessment & Plan (1) Psychosis: Qualifiers: Psychosis type: unspecified psychosis type Qualified Code(s): F29 - Unspecified psychosis not due to a substance or known physiological condition Status: Acute Code(s): F29 - Unspecified psychosis not due to a substance or known physiological condition (2) Dementia: Qualifiers: Dementia behavioral disturbance: with behavioral disturbance Dementia type: unspecified type Qualified Code(s): F03.91 - Unspecified dementia with behavioral disturbance Status: Acute Code(s): F03.90 - Unspecified dementia without behavioral disturbance Assessment and Plan: restart low-dose valium in the event he is experiencing a withdrawal syndrome. slowly taper. increase HS seroquel to help with sleep and paranoia. I spent minutes with the patient and/or on the patient floor today, greater than?50% of which was spent counseling/coordinating care. Reason for contiued inpatient stay Substantial Risk for: harm to others, inability to function and rapid decompensation
[2021-06-02 18:00] VITALS: BP 167/85; PULSE 99; RESP 18; TEMP 36.6; O2SAT 96
[2021-06-02 20:05] LABS: Glucose, Whole Blood 248 mg/dL (60-115)
[2021-06-02] MEDS: traZODone HCL 50 MG TABLET PO (20:31)
[2021-06-02] MEDS: QUEtiapine Fumarate 50 MG TABLET PO (20:32)
[2021-06-03 06:00] VITALS: BP 147/79; PULSE 85; RESP 17; TEMP 36.1; O2SAT 97
--- NOTE | 2021-06-03 10:46 | HO.PSYCHPN ---
Subjective Subjective Date of Service: 06/03/21 Reason For Visit: Psychosis Subjective Notes: Conditional Voluntary Interim History: the nursing staff reported patient has been isolative. He has problems eating sings he does not have teeth. His mostly Vincentian speaking but according to the chart he can understand Sudanese. On interview, the patient was seclusive with poor eye contact but no aggressive behavior. We will try to gather more collateral information Mental Status Exam Mental Status Exam Patient Appearance: Disheveled Patient Orientation: Person Level of Consciousness: Awake Patient Behavior: Guarded, Passive and Suspicious Mood Description: Constricted Affect Description: Constricted Patient Cognition Impaired: Yes Ability to Follow Directions: Fair Speech Pattern: Inappropriate Hallucinations: None Delusions: Paranoid Ideation Thought Process: Linear Thought Content: positive for Circumstantial Judgement: Fair Diagnostics Vital Signs (24Hr): Vital Signs - 24 hr 06/02/21 18:00 06/03/21 06:00 Temperature 97.9 F 96.9 F Pulse Rate 99 85 Respiratory Rate 18 17 Blood Pressure 167/85 H 147/79 H Pulse Oximetry 96 97 BMI result Body Mass Index 25.2 Labs Results: 05/31/21 11:48 05/31/21 11:48 Labs: Laboratory Results - last 48 hr 06/02/21 19:58 POC Glucose 248 H Imaging Radiology Impressions: ITS Impressions Chest X-Ray 05/31/21 12:18 IMPRESSION: No evidence for acute disease in the chest. Bibasilar atelectasis. No definite pneumonia is seen. Head CT 05/31/21 12:59 IMPRESSION: No acute intracranial pathology. Generalized atrophy and nonspecific periventricular white matter disease. Abdomen Ultrasound 05/31/21 13:10 IMPRESSION: Mild hepatic steatosis and hepatomegaly. No focal lesion seen. Visualized slightly contracted gallbladder, CBD and right kidneys unremarkable. Medications Medications Current Medications Acetaminophen (Acetaminophen 325 Mg Tablet) 975 mg PO Q8H PRN PRN Reason: Pain (Scale Score 7-10) Acetaminophen (Acetaminophen 325 Mg Tablet) 650 mg PO Q6H PRN PRN Reason: Headache/Pain Mild Scale (1-3) Al Hydroxide/Mg Hydroxide (Magnesium Hydrox/Alum Hydrox 30 Ml Oral.Susp) 30 ml PO Q6H PRN PRN Reason: Heartburn/Nausea Diazepam (Diazepam 2 Mg Tablet) 2 mg PO TID [facility] Last Admin: 06/02/21 20:31 Dose: 2 mg Documented by: Famotidine (Famotidine 20 Mg Tablet) 40 mg PO DAILY [facility] Last Admin: 06/02/21 10:06 Dose: Not Given Documented by: Finasteride (Finasteride 5 Mg Tablet) 5 mg PO DAILY [facility] Last Admin: 06/02/21 10:07 Dose: Not Given Documented by: Magnesium Hydroxide (Milk Of Magnesia 30 Ml Oral.Susp) 30 ml PO DAILY PRN PRN Reason: Constipation Metoprolol Succinate (Metoprolol Succinate Er 50 Mg Tab.Er.24h) 150 mg PO DAILY [facility]; Protocol Last Admin: 06/02/21 10:07 Dose: Not Given Documented by: Multivitamins/Vitamin C (Multivitamin Tablet) 1 tab PO DAILY [facility] Last Admin: 06/02/21 10:07 Dose: Not Given Documented by: Nitroglycerin (Nitroglycerin 0.4 Mg Tab.Subl) 0.4 mg SUBLINGUAL Q5M PRN PRN Reason: Chest Pain Omeprazole (Omeprazole 20 Mg Capsule.Dr) 20 mg PO DAILY [facility] Last Admin: 06/02/21 10:07 Dose: Not Given Documented by: Psyllium Hydrophilic Mucilloid (Psyllium Seed 3.4 Gm Powd.Pack) 3.4 gm PO MOWEFR@0900 [facility] Quetiapine Fumarate (Quetiapine Fumarate 50 Mg Tablet) 50 mg PO BEDTIME [facility] Last Admin: 06/02/21 20:32 Dose: 50 mg Documented by: Tamsulosin HCl (Tamsulosin Hcl 0.4 Mg Capsule) 0.4 mg PO DAILY@1700 [facility] Last Admin: 06/02/21 17:20 Dose: Not Given Documented by: Trazodone HCl (Trazodone Hcl 25 Mg Halftab) 25 mg PO DAILY [facility] Last Admin: 06/02/21 08:39 Dose: 25 mg Documented by: Trazodone HCl (Trazodone Hcl 50 Mg Tablet) 50 mg PO BEDTIME [facility] Last Admin: 06/02/21 20:31 Dose: 50 mg Documented by: Trazodone HCl (Trazodone Hcl 50 Mg Tablet) 50 mg PO BEDTIME PRN PRN Reason: Insomnia Last Admin: 06/01/21 01:00 Dose: 50 mg Documented by: Vitamin D (Cholecalciferol (Vitamin D3) 25 Mcg Tablet) 50 mcg PO DAILY [facility] Last Admin: 06/02/21 10:06 Dose: Not Given Documented by: Allergies Allergies Allergy/AdvReac Type Severity Reaction Status Date / Time No Known Allergies Allergy Verified 05/31/21 11:23 Assessment & Plan Assessment & Plan (1) Psychosis: Qualifiers: Psychosis type: unspecified psychosis type Qualified Code(s): F29 - Unspecified psychosis not due to a substance or known physiological condition Status: Acute Code(s): F29 - Unspecified psychosis not due to a substance or known physiological condition (2) Dementia: Qualifiers: Dementia behavioral disturbance: with behavioral disturbance Dementia type: unspecified type Qualified Code(s): F03.91 - Unspecified dementia with behavioral disturbance Status: Acute Code(s): F03.90 - Unspecified dementia without behavioral disturbance Assessment and Plan: the patient is an elderly male, mostly Vincentian speaking with a long history of developmental problems and psychosis. The patient was brought into this facility since he become violent and aggressive after the taper of Valium. Plan 1. Keep Valium 2 mg p.o. t.i.d.. 2. Keep Seroquel at the same dose. 3. Gather collateral information I spent minutes with the patient and/or on the patient floor today, greater than?50% of which was spent counseling/coordinating care. Reason for contiued inpatient stay Substantial Risk for: inability to function, rapid decompensation and med/psych decompensation
--- NOTE | 2021-06-03 13:59 | MHC.CLN ---
Addendum entered by Leatha Parker RD 06/03/21 14:38: PER UNIT STAFF, PATIENT EATING POORLY BUT WILL DRINK SUPPLEMENT. ADDING GLUCERNA TID TO PROVIDE 710 KCAL, 30 G PROTEIN. 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 PATIENT WITH RECENT DX OF DIABETES AND HAD BEEN TAKING TRULICITY. HAD BEEN RECEIVING SOFT FOODS. DIET=DIABETIC 2000 KCAL, NDD2.
[2021-06-03 18:00] VITALS: BP 134/92; PULSE 95; RESP 18; TEMP 36.6; O2SAT 92
[2021-06-03 19:53] LABS: Glucose, Whole Blood 311 mg/dL (60-115)
[2021-06-03] MEDS: diazePAM 2 MG TABLET PO (20:33)
[2021-06-03] MEDS: traZODone HCL 50 MG TABLET PO (20:33)
[2021-06-03] MEDS: QUEtiapine Fumarate 50 MG TABLET PO (20:33)
[2021-06-03] MEDS: Loperamide HCl 2 MG CAPSULE 4 MG PO (21:14)
[2021-06-04 06:00] VITALS: BP 146/72; PULSE 79; RESP 17; TEMP 36.1; O2SAT 97
[2021-06-04 07:33] LABS: Glucose, Whole Blood 184 mg/dL (60-115)
[2021-06-04] MEDS: Famotidine 20 MG TABLET 40 MG PO (08:00)
[2021-06-04] MEDS: traZODone HCL 25 MG HALFTAB PO (08:00)
[2021-06-04] MEDS: Finasteride 5 MG TABLET PO (08:00)
[2021-06-04] MEDS: Multivitamin TABLET 1 TAB PO (08:00)
[2021-06-04] MEDS: diazePAM 2 MG TABLET PO ×3 (08:00→20:30)
[2021-06-04] MEDS: Cholecalciferol (Vitamin D3) 25 MCG TABLET 50 MCG PO (08:00)
[2021-06-04] MEDS: Omeprazole 20 MG CAPSULE.DR PO (08:00)
[2021-06-04] MEDS: Metoprolol Succinate ER 50 MG TAB.ER.24H 150 MG PO (08:00)
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
[2021-06-04] MEDS: Tamsulosin HCL 0.4 MG CAPSULE PO (15:56)
[2021-06-04 18:00] VITALS: BP 124/71; PULSE 83; RESP 16; TEMP 36.6; O2SAT 93
[2021-06-04 18:11] LABS: IDNOW Serial# 9DD0AD1C
[2021-06-04 18:13] LABS: COVID-19 Test Negative (Negative)
[2021-06-04] MEDS: traZODone HCL 50 MG TABLET PO (20:31)
[2021-06-04] MEDS: QUEtiapine Fumarate 50 MG TABLET PO (20:31)
[2021-06-04 22:56] LABS: Glucose, Whole Blood 234 mg/dL (60-115)
[2021-06-05 08:34] VITALS: BP 141/72; PULSE 89; RESP 16; TEMP 36.3; O2SAT 96
[2021-06-05] MEDS: Famotidine 20 MG TABLET 40 MG PO (08:44)
[2021-06-05] MEDS: Finasteride 5 MG TABLET PO (08:44)
[2021-06-05] MEDS: Cholecalciferol (Vitamin D3) 25 MCG TABLET 50 MCG PO (08:44)
[2021-06-05] MEDS: QUEtiapine Fumarate 25 MG TABLET PO (08:44)
[2021-06-05] MEDS: Metoprolol Succinate ER 50 MG TAB.ER.24H 150 MG PO (08:44)
[2021-06-05] MEDS: diazePAM 2 MG TABLET PO ×2 (08:45→20:39)
[2021-06-05] MEDS: traZODone HCL 25 MG HALFTAB PO (08:45)
[2021-06-05] MEDS: Multivitamin TABLET 1 TAB PO (08:45)
[2021-06-05] MEDS: Omeprazole 20 MG CAPSULE.DR PO (08:45)
--- NOTE | 2021-06-05 09:09 | PC.NURSE ---
Patient is unable to answer questions at this time. Not able to engage in assessment. Smoking history is unknown. Patient does not answer when asked if he was/is a smoker or would like nicotine replacement.
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
[2021-06-05 11:32] LABS: Glucose, Whole Blood 358 mg/dL (60-115)
[2021-06-05] MEDS: Insulin Lispro 100 UNIT/ML 3 ML VIAL SUBCUT ×3 (11:32→20:36)
[2021-06-05 13:26] LABS: COVID-19 Test Negative (Negative)
--- NOTE | 2021-06-05 13:35 | PC.NURSE ---
Patient was sitting in ANISH chair being feed lunch when he began coughing uncontrollably. To rule out aspiration MD was notified and has not yet responded re:chest xray. Covid swab was ordered with a negative result. Patient resting comfortably in bed at this time.
[2021-06-05 16:24] LABS: Glucose, Whole Blood 185 mg/dL (60-115)
[2021-06-05] MEDS: Tamsulosin HCL 0.4 MG CAPSULE PO (17:05)
[2021-06-05] MEDS: risperiDONE 0.5 MG TABLET PO ×2 (17:06→20:38)
[2021-06-05 20:20] VITALS: BP 127/62; PULSE 88; RESP 18; TEMP 36.4; O2SAT 95
[2021-06-05 20:35] LABS: Glucose, Whole Blood 253 mg/dL (60-115)
[2021-06-05] MEDS: traZODone HCL 50 MG TABLET PO (20:38)
[2021-06-05] MEDS: QUEtiapine Fumarate 50 MG TABLET PO (20:38)
[2021-06-06 06:32] LABS: Glucose, Whole Blood 197 mg/dL (60-115)
[2021-06-06 07:00] VITALS: BMI 21.6
[2021-06-06 07:51] LABS: Glucose, Whole Blood 235 mg/dL (60-115)
[2021-06-06] MEDS: Insulin Lispro 100 UNIT/ML 3 ML VIAL SUBCUT ×4 (08:23→20:03)
[2021-06-06] MEDS: Multivitamin TABLET 1 TAB PO (08:43)
[2021-06-06] MEDS: Finasteride 5 MG TABLET PO (08:43)
[2021-06-06] MEDS: Cholecalciferol (Vitamin D3) 25 MCG TABLET 50 MCG PO (08:43)
[2021-06-06] MEDS: diazePAM 2 MG TABLET PO ×2 (08:44→22:17)
[2021-06-06] MEDS: Metoprolol Succinate ER 50 MG TAB.ER.24H 150 MG PO (08:44)
[2021-06-06] MEDS: Famotidine 20 MG TABLET 40 MG PO (08:44)
[2021-06-06] MEDS: traZODone HCL 25 MG HALFTAB PO (08:44)
[2021-06-06] MEDS: risperiDONE 0.5 MG TABLET PO (08:44)
[2021-06-06 11:04] LABS: Glucose, Whole Blood 377 mg/dL (60-115)
[2021-06-06] MEDS: Omeprazole 20 MG CAPSULE.DR PO (11:14)
[2021-06-06 11:25] VITALS: BP 126/60; PULSE 100; RESP 18; TEMP 36.7; O2SAT 95
--- NOTE | 2021-06-06 11:40 | MHC.SL.SWA ---
Speech Pathologist Impression: Within Functional Limits Risk of Aspiration Due to: Reduced Cognition Dysphasia Diet Status: No Change Liquid Consistency and Strategies for Safe Swallow: Liquid Intake Recommendation: Thin Liquid Intake Strategies: Small Sips Solid Food Consistency: Dietary Recommendations: Grnd/Mech Altered (NDD2) Additional Modifications to Solid Foods: Continue current Diet due to Pt w/o dentures and is currently edentulous. Oral Medication Intake: Whole with Liquid Compensatory Strategies and Precautions to be Taken for Safe Swallow: Sitting Upright (90 deg) Supervision While Eating and Drinking for Safe Swallow: Total Supervision (1:1) Foods to Avoid: Swallowing Recommended Treatments: Recommendation for Speech: Discharged with Instructions for Home Use Comment: Pt presents w/swallow function WNL. Pt at risk for aspiration primarily due to impulsive behavior, tendencies to take large quantities of food or liquid per presentation, so will required supervision/monitoring during all meals. As Pt is edentulous and currently w/o prescribed dentures, recommend Pt continue on current diet of Ground Mechanical (NDD2) w/ thin liquids. Pt can have pills whole w/liquid (No change from current diet/med administration). Recommend D/C from Speech at this time. Frequency/Duration: D/C Speech Date Range for Service Req: Timeline to reassess: Design Sales Consultant Clinican/Clinical Fellow: No Supervisory Statement: I have reviewed and agree with the student/clinical fellow's documentation: N/A Speech Language Pathologist: Yodit Bynum M.A., CCC-PARTS CHASER
--- NOTE | 2021-06-06 14:51 | HO.PSYCHPN ---
Subjective Subjective Date of Service: 06/06/21 Reason For Visit: Psychosis Subjective Notes: Conditional Voluntary Interim History: the nursing staff reported that the speech and swallow tests came back negative. There were reports that he was coughing while eating but it seems that it was negative. Chest x-ray was negative. Still, he seclusive and slightly psychotic but more active in the evening, loud and now he walks with the help of a walker. Communication with the patient is very difficult because he speaks a dialect of Comoran. He was loud calling for his sister in the evening. It seems that he is more active with the change of antipsychotics to Risperdal. 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 and since then he had cognitive impairment Mental Status Exam Mental Status Exam Patient Appearance: Disheveled and Unkempt Patient Orientation: Person and Situation Level of Consciousness: Awake Patient Behavior: Guarded, Passive and Suspicious Mood Description: Suspicious and Hostile Affect Description: Labile Patient Cognition Impaired: Yes Ability to Follow Directions: Good Speech Pattern: Loud Hallucinations: None Delusions: Paranoid Ideation Thought Process: Illogical and Distracted Diagnostics Vital Signs (24Hr): Vital Signs - 24 hr 06/05/21 20:20 06/06/21 11:25 Temperature 97.6 F 98.0 F Pulse Rate 88 100 Respiratory Rate 18 18 Blood Pressure 127/62 126/60 Pulse Oximetry 95 95 BMI result Body Mass Index 21.6 Labs Results: 05/31/21 11:48 05/31/21 11:48 Labs: Laboratory Results - last 48 hr 06/04/21 06/04/21 06/05/21 22:47 Unknown 11:25 POC Glucose 234 H 358 H* COVID-19 ([facility]) Negative COVID-19 Clin Com See Note 06/05/21 06/05/21 06/05/21 12:55 16:18 20:31 POC Glucose 185 H 253 H COVID-19 ([facility]) Negative COVID-19 Clin Com See Note 06/06/21 06/06/21 06/06/21 06:29 07:42 10:57 POC Glucose 197 H 235 H 377 H* COVID-19 ([facility]) COVID-19 Clin Com Imaging Radiology Impressions: ITS Impressions Chest X-Ray 05/31/21 12:18 IMPRESSION: No evidence for acute disease in the chest. Bibasilar atelectasis. No definite pneumonia is seen. Head CT 05/31/21 12:59 IMPRESSION: No acute intracranial pathology. Generalized atrophy and nonspecific periventricular white matter disease. Abdomen Ultrasound 05/31/21 13:10 IMPRESSION: Mild hepatic steatosis and hepatomegaly. No focal lesion seen. Visualized slightly contracted gallbladder, CBD and right kidneys unremarkable. Medications Medications Current Medications Acetaminophen (Acetaminophen 325 Mg Tablet) 975 mg PO Q8H PRN PRN Reason: Pain (Scale Score 7-10) Acetaminophen (Acetaminophen 325 Mg Tablet) 650 mg PO Q6H PRN PRN Reason: Headache/Pain Mild Scale (1-3) Al Hydroxide/Mg Hydroxide (Magnesium Hydrox/Alum Hydrox 30 Ml Oral.Susp) 30 ml PO Q6H PRN PRN Reason: Heartburn/Nausea Dextrose (Dextrose 50 % 25 Gm/50 Ml Vial) 25 gm IVPUSH Q15M PRN; Protocol PRN Reason: per Hypoglycemia Standing Ord. Diazepam (Diazepam 2 Mg Tablet) 2 mg PO BID [facility] Last Admin: 06/06/21 08:44 Dose: 2 mg Documented by: Famotidine (Famotidine 20 Mg Tablet) 40 mg PO DAILY [facility] Last Admin: 06/06/21 08:44 Dose: 40 mg Documented by: Finasteride (Finasteride 5 Mg Tablet) 5 mg PO DAILY [facility] Last Admin: 06/06/21 08:43 Dose: 5 mg Documented by: Glucose (Glucose Gel 15 Gm Gel..Gram.) 15 gm PO Q15M PRN; Protocol PRN Reason: per Hypoglycemia Standing Ord. Insulin Human Lispro (Insulin Lispro 100 Unit/Ml 3 Ml Vial) 0 unit SUBCUT QIDACHS [facility]; Protocol Last Admin: 06/06/21 11:15 Dose: 10 unit Documented by: Loperamide HCl (Loperamide Hcl 2 Mg Capsule) 4 mg PO Q6H PRN PRN Reason: diarrhea Last Admin: 06/03/21 21:14 Dose: 4 mg Documented by: Magnesium Hydroxide (Milk Of Magnesia 30 Ml Oral.Susp) 30 ml PO DAILY PRN PRN Reason: Constipation Metoprolol Succinate (Metoprolol Succinate Er 50 Mg Tab.Er.24h) 150 mg PO DAILY [facility]; Protocol Last Admin: 06/06/21 08:44 Dose: 150 mg Documented by: Multivitamins/Vitamin C (Multivitamin Tablet) 1 tab PO DAILY [facility] Last Admin: 06/06/21 08:43 Dose: 1 tab Documented by: Nitroglycerin (Nitroglycerin 0.4 Mg Tab.Subl) 0.4 mg SUBLINGUAL Q5M PRN PRN Reason: Chest Pain Omeprazole (Omeprazole 20 Mg Capsule.Dr) 20 mg PO DAILY [facility] Last Admin: 06/06/21 11:14 Dose: 20 mg Documented by: Psyllium Hydrophilic Mucilloid (Psyllium Seed 3.4 Gm Powd.Pack) 3.4 gm PO MOWEFR@0900 [facility] Last Admin: 06/05/21 08:50 Dose: 3.4 gm Documented by: Quetiapine Fumarate (Quetiapine Fumarate 50 Mg Tablet) 50 mg PO BEDTIME [facility] Last Admin: 06/05/21 20:38 Dose: 50 mg Documented by: Tamsulosin HCl (Tamsulosin Hcl 0.4 Mg Capsule) 0.4 mg PO DAILY@1700 [facility] Last Admin: 06/05/21 17:05 Dose: 0.4 mg Documented by: Trazodone HCl (Trazodone Hcl 25 Mg Halftab) 25 mg PO DAILY [facility] Last Admin: 06/06/21 08:44 Dose: 25 mg Documented by: Trazodone HCl (Trazodone Hcl 50 Mg Tablet) 50 mg PO BEDTIME [facility] Last Admin: 06/05/21 20:38 Dose: 50 mg Documented by: Trazodone HCl (Trazodone Hcl 50 Mg Tablet) 50 mg PO BEDTIME PRN PRN Reason: Insomnia Last Admin: 06/01/21 01:00 Dose: 50 mg Documented by: Vitamin D (Cholecalciferol (Vitamin D3) 25 Mcg Tablet) 50 mcg PO DAILY [facility] Last Admin: 06/06/21 08:43 Dose: 50 mcg Documented by: Allergies Allergies Allergy/AdvReac Type Severity Reaction Status Date / Time lactose AdvReac Diarrhea Verified 06/04/21 13:17 Assessment & Plan Assessment & Plan (1) Psychosis: Qualifiers: Psychosis type: unspecified psychosis type Qualified Code(s): F29 - Unspecified psychosis not due to a substance or known physiological condition Status: Acute Code(s): F29 - Unspecified psychosis not due to a substance or known physiological condition (2) Dementia: Qualifiers: Dementia behavioral disturbance: with behavioral disturbance Dementia type: unspecified type Qualified Code(s): F03.91 - Unspecified dementia with behavioral disturbance Status: Acute Code(s): F03.90 - Unspecified dementia without behavioral disturbance Assessment and Plan: the patient is an elderly male, mostly Comoran speaking with a long history of developmental problems and psychosis. The patient was brought into this facility since he become violent and aggressive after the taper of Valium. Plan 1. Taper Valium up to 2 mg p.o. b.i.d. 2. Diiscontinue Seroquel up to 25 mg po bid but keep Seroquel 50 mg po qhs. 3. Gather collateral information. today we will have a family meeting over the phone. 4. increase Risperdal up to 0.75 mg p.o. t.i.d. to target psychosis I spent minutes with the patient and/or on the patient floor today, greater than?50% of which was spent counseling/coordinating care. Reason for contiued inpatient stay Substantial Risk for: inability to function, rapid decompensation and med/psych decompensation
[2021-06-06 16:03] LABS: Glucose, Whole Blood 294 mg/dL (60-115)
[2021-06-06] MEDS: risperiDONE 0.25 MG TABLET 0.75 MG PO ×2 (16:37→19:48)
[2021-06-06] MEDS: Tamsulosin HCL 0.4 MG CAPSULE PO (16:37)
[2021-06-06 19:31] VITALS: RESP 16; TEMP 36.7
[2021-06-06] MEDS: traZODone HCL 50 MG TABLET PO (19:48)
[2021-06-06] MEDS: QUEtiapine Fumarate 50 MG TABLET PO (19:48)
[2021-06-06 20:02] LABS: Glucose, Whole Blood 280 mg/dL (60-115)
[2021-06-07 06:08] LABS: Glucose, Whole Blood 198 mg/dL (60-115)
[2021-06-07 08:00] VITALS: BP 95/61; PULSE 83; RESP 15; TEMP 36.2; O2SAT 96
[2021-06-07] MEDS: traZODone HCL 25 MG HALFTAB PO (09:04)
[2021-06-07 12:00] LABS: Glucose, Whole Blood 266 mg/dL (60-115)
[2021-06-07] MEDS: Insulin Lispro 100 UNIT/ML 3 ML VIAL SUBCUT ×3 (12:13→20:18)
--- NOTE | 2021-06-07 13:25 | HO.PSYCHPN ---
Subjective Subjective Date of Service: 06/07/21 Reason For Visit: Psychosis Subjective Notes: Conditional Voluntary Interim History: The nursing staff reported that the patient has been calling for his sister, he slept well last night. He has been loud but easily redirectable. The social problems specialist reported that she contact the therapist and apparently her sisters were interfering with the treatment and stopping medications without doctor's approval. On interview, the patient refused to interact in the interview. No evidence of EPS Mental Status Exam Mental Status Exam Patient Appearance: Disheveled and Unkempt Patient Orientation: Person Level of Consciousness: Drowsy Patient Behavior: Guarded and Suspicious Mood Description: Depressed Affect Description: Constricted Patient Cognition Impaired: Yes Ability to Follow Directions: Fair Speech Pattern: No Speech Hallucinations: None Delusions: Not Present Thought Process: Illogical Thought Content: positive for [place] Judgement: Poor Diagnostics Vital Signs (24Hr): Vital Signs - 24 hr 06/06/21 19:31 06/07/21 08:00 Temperature 98.1 F 97.2 F Pulse Rate 83 Respiratory Rate 16 15 Blood Pressure 95/61 Pulse Oximetry 96 BMI result Body Mass Index 21.6 Labs Results: 05/31/21 11:48 05/31/21 11:48 Labs: Laboratory Results - last 48 hr 06/05/21 06/05/21 06/05/21 12:55 16:18 20:31 POC Glucose 185 H 253 H COVID-19 ([facility]) Negative COVID-19 Clin Com See Note 06/06/21 06/06/21 06/06/21 06:29 07:42 10:57 POC Glucose 197 H 235 H 377 H* COVID-19 ([facility]) COVID-19 Clin Com 06/06/21 06/06/21 06/07/21 15:58 19:56 05:59 POC Glucose 294 H 280 H 198 H COVID-19 ([facility]) COVID-19 Clin Com 06/07/21 11:56 POC Glucose 266 H COVID-19 ([facility]) COVID-19 Clin Com Imaging Radiology Impressions: ITS Impressions Chest X-Ray 05/31/21 12:18 IMPRESSION: No evidence for acute disease in the chest. Bibasilar atelectasis. No definite pneumonia is seen. Head CT 05/31/21 12:59 IMPRESSION: No acute intracranial pathology. Generalized atrophy and nonspecific periventricular white matter disease. Abdomen Ultrasound 05/31/21 13:10 IMPRESSION: Mild hepatic steatosis and hepatomegaly. No focal lesion seen. Visualized slightly contracted gallbladder, CBD and right kidneys unremarkable. Medications Medications Current Medications Acetaminophen (Acetaminophen 325 Mg Tablet) 975 mg PO Q8H PRN PRN Reason: Pain (Scale Score 7-10) Acetaminophen (Acetaminophen 325 Mg Tablet) 650 mg PO Q6H PRN PRN Reason: Headache/Pain Mild Scale (1-3) Al Hydroxide/Mg Hydroxide (Magnesium Hydrox/Alum Hydrox 30 Ml Oral.Susp) 30 ml PO Q6H PRN PRN Reason: Heartburn/Nausea Dextrose (Dextrose 50 % 25 Gm/50 Ml Vial) 25 gm IVPUSH Q15M PRN; Protocol PRN Reason: per Hypoglycemia Standing Ord. Diazepam (Diazepam 2 Mg Tablet) 2 mg PO BID [facility] Last Admin: 06/07/21 09:27 Dose: Not Given Documented by: Famotidine (Famotidine 20 Mg Tablet) 40 mg PO DAILY [facility] Last Admin: 06/07/21 09:27 Dose: Not Given Documented by: Finasteride (Finasteride 5 Mg Tablet) 5 mg PO DAILY [facility] Last Admin: 06/07/21 09:27 Dose: Not Given Documented by: Glucose (Glucose Gel 15 Gm Gel..Gram.) 15 gm PO Q15M PRN; Protocol PRN Reason: per Hypoglycemia Standing Ord. Insulin Human Lispro (Insulin Lispro 100 Unit/Ml 3 Ml Vial) 0 unit SUBCUT QIDACHS [facility]; Protocol Last Admin: 06/07/21 12:13 Dose: 6 unit Documented by: Loperamide HCl (Loperamide Hcl 2 Mg Capsule) 4 mg PO Q6H PRN PRN Reason: diarrhea Last Admin: 06/03/21 21:14 Dose: 4 mg Documented by: Magnesium Hydroxide (Milk Of Magnesia 30 Ml Oral.Susp) 30 ml PO DAILY PRN PRN Reason: Constipation Metoprolol Succinate (Metoprolol Succinate Er 50 Mg Tab.Er.24h) 150 mg PO DAILY [facility]; Protocol Last Admin: 06/07/21 09:27 Dose: Not Given Documented by: Multivitamins/Vitamin C (Multivitamin Tablet) 1 tab PO DAILY [facility] Last Admin: 06/07/21 09:27 Dose: Not Given Documented by: Nitroglycerin (Nitroglycerin 0.4 Mg Tab.Subl) 0.4 mg SUBLINGUAL Q5M PRN PRN Reason: Chest Pain Omeprazole (Omeprazole 20 Mg Capsule.Dr) 20 mg PO DAILY [facility] Last Admin: 06/07/21 09:28 Dose: Not Given Documented by: Psyllium Hydrophilic Mucilloid (Psyllium Seed 3.4 Gm Powd.Pack) 3.4 gm PO MOWEFR@0900 [facility] Last Admin: 06/07/21 09:28 Dose: Not Given Documented by: Quetiapine Fumarate (Quetiapine Fumarate 50 Mg Tablet) 50 mg PO BEDTIME [facility] Last Admin: 06/06/21 19:48 Dose: 50 mg Documented by: Risperidone (Risperidone 0.25 Mg Tablet) 0.75 mg PO TID [facility] Last Admin: 06/07/21 09:28 Dose: Not Given Documented by: Tamsulosin HCl (Tamsulosin Hcl 0.4 Mg Capsule) 0.4 mg PO DAILY@1700 [facility] Last Admin: 06/06/21 16:37 Dose: 0.4 mg Documented by: Trazodone HCl (Trazodone Hcl 25 Mg Halftab) 25 mg PO DAILY [facility] Last Admin: 06/07/21 09:04 Dose: 25 mg Documented by: Trazodone HCl (Trazodone Hcl 50 Mg Tablet) 50 mg PO BEDTIME [facility] Last Admin: 06/06/21 19:48 Dose: 50 mg Documented by: Trazodone HCl (Trazodone Hcl 50 Mg Tablet) 50 mg PO BEDTIME PRN PRN Reason: Insomnia Last Admin: 06/01/21 01:00 Dose: 50 mg Documented by: Vitamin D (Cholecalciferol (Vitamin D3) 25 Mcg Tablet) 50 mcg PO DAILY [facility] Last Admin: 06/07/21 09:27 Dose: Not Given Documented by: Allergies Allergies Allergy/AdvReac Type Severity Reaction Status Date / Time lactose AdvReac Diarrhea Verified 06/04/21 13:17 Assessment & Plan Assessment & Plan (1) Psychosis: Qualifiers: Psychosis type: unspecified psychosis type Qualified Code(s): F29 - Unspecified psychosis not due to a substance or known physiological condition Status: Acute Code(s): F29 - Unspecified psychosis not due to a substance or known physiological condition (2) Dementia: Qualifiers: Dementia behavioral disturbance: with behavioral disturbance Dementia type: unspecified type Qualified Code(s): F03.91 - Unspecified dementia with behavioral disturbance Status: Acute Code(s): F03.90 - Unspecified dementia without behavioral disturbance Assessment and Plan: the patient is an elderly male, mostly Yakut speaking with a long history of developmental problems and psychosis. The patient was brought into this facility since he become violent and aggressive after the taper of Valium. Plan 1. Taper Valium up to 2 mg p.o. daily 2. Diiscontinue Seroquel up to 25 mg po bid but keep Seroquel 50 mg po qhs. 3. increase Risperdal up to 1 mg p.o. b.i.d. I spent minutes with the patient and/or on the patient floor today, greater than?50% of which was spent counseling/coordinating care. Reason for contiued inpatient stay Substantial Risk for: inability to function, rapid decompensation and med/psych decompensation
[2021-06-07 16:52] LABS: Glucose, Whole Blood 293 mg/dL (60-115)
[2021-06-07 18:00] VITALS: BP 111/68; PULSE 104; RESP 19; TEMP 36.6; O2SAT 97
[2021-06-07 19:43] LABS: Glucose, Whole Blood 346 mg/dL (60-115)
[2021-06-07] MEDS: risperiDONE 1 MG TABLET PO (20:17)
[2021-06-07] MEDS: QUEtiapine Fumarate 50 MG TABLET PO (20:18)
[2021-06-07] MEDS: traZODone HCL 50 MG TABLET PO (20:18)
[2021-06-08 07:04] LABS: Glucose, Whole Blood 196 mg/dL (60-115)
[2021-06-08] MEDS: Insulin Lispro 100 UNIT/ML 3 ML VIAL SUBCUT ×4 (08:10→21:15)
[2021-06-08] MEDS: Finasteride 5 MG TABLET PO (09:07)
[2021-06-08] MEDS: risperiDONE 1 MG TABLET PO ×2 (09:07→21:16)
[2021-06-08] MEDS: traZODone HCL 25 MG HALFTAB PO (09:07)
[2021-06-08] MEDS: Famotidine 20 MG TABLET 40 MG PO (09:07)
[2021-06-08] MEDS: diazePAM 2 MG TABLET PO (09:07)
[2021-06-08] MEDS: Metoprolol Succinate ER 50 MG TAB.ER.24H 150 MG PO (09:07)
[2021-06-08] MEDS: Multivitamin TABLET 1 TAB PO (09:08)
[2021-06-08] MEDS: Omeprazole 20 MG CAPSULE.DR PO (09:08)
[2021-06-08] MEDS: Cholecalciferol (Vitamin D3) 25 MCG TABLET 50 MCG PO (09:08)
[2021-06-08 09:16] VITALS: BP 115/60; PULSE 94; RESP 16; TEMP 36.5; O2SAT 97
--- NOTE | 2021-06-08 10:00 | HO.PSYCHPN ---
Subjective Subjective Date of Service: 06/08/21 Reason For Visit: Psychosis Subjective Notes: Conditional Voluntary Medical Problems Affecting Mental Status: No Interim History: Patient was seen and discussed in rounds today. Records and current plans reviewed. He was laying comfortably in bed. Very little response. He has been med compliant. Continues to have a lot of cognitive deficits and dysfunction. No overt signs of psychosis. No side effects reported. Eating and sleeping adequately. No changes were made Medication Compliance: Yes Side effects from medications: No Review of Systems Review of Systems ROS unable to be obtained due to altered mental status Mental Status Exam Mental Status Exam Patient Appearance: Disheveled and Unkempt Patient Orientation: Person Level of Consciousness: Drowsy Patient Behavior: Guarded and Suspicious Mood Description: Depressed Affect Description: Constricted Patient Cognition Impaired: Yes Ability to Follow Directions: Fair Speech Pattern: No Speech Hallucinations: None Delusions: Not Present Thought Process: Illogical Thought Content: positive for [place] Judgement: Poor Diagnostics Vital Signs (24Hr): Vital Signs - 24 hr 06/07/21 18:00 06/08/21 09:16 Temperature 98 F 97.7 F Pulse Rate 104 H 94 Respiratory Rate 19 16 Blood Pressure 111/68 115/60 Pulse Oximetry 97 97 BMI result Body Mass Index 21.6 Labs Results: 05/31/21 11:48 05/31/21 11:48 Labs: Laboratory Results - last 48 hr 06/06/21 06/06/21 06/06/21 10:57 15:58 19:56 POC Glucose 377 H* 294 H 280 H 06/07/21 06/07/21 06/07/21 05:59 11:56 16:48 POC Glucose 198 H 266 H 293 H 06/07/21 06/08/21 19:39 06:58 POC Glucose 346 H 196 H Imaging Radiology Impressions: ITS Impressions Chest X-Ray 05/31/21 12:18 IMPRESSION: No evidence for acute disease in the chest. Bibasilar atelectasis. No definite pneumonia is seen. Head CT 05/31/21 12:59 IMPRESSION: No acute intracranial pathology. Generalized atrophy and nonspecific periventricular white matter disease. Abdomen Ultrasound 05/31/21 13:10 IMPRESSION: Mild hepatic steatosis and hepatomegaly. No focal lesion seen. Visualized slightly contracted gallbladder, CBD and right kidneys unremarkable. Medications Medications Current Medications Acetaminophen (Acetaminophen 325 Mg Tablet) 975 mg PO Q8H PRN PRN Reason: Pain (Scale Score 7-10) Acetaminophen (Acetaminophen 325 Mg Tablet) 650 mg PO Q6H PRN PRN Reason: Headache/Pain Mild Scale (1-3) Al Hydroxide/Mg Hydroxide (Magnesium Hydrox/Alum Hydrox 30 Ml Oral.Susp) 30 ml PO Q6H PRN PRN Reason: Heartburn/Nausea Dextrose (Dextrose 50 % 25 Gm/50 Ml Vial) 25 gm IVPUSH Q15M PRN; Protocol PRN Reason: per Hypoglycemia Standing Ord. Diazepam (Diazepam 2 Mg Tablet) 2 mg PO DAILY [facility] Last Admin: 06/08/21 09:07 Dose: 2 mg Documented by: Famotidine (Famotidine 20 Mg Tablet) 40 mg PO DAILY [facility] Last Admin: 06/08/21 09:07 Dose: 40 mg Documented by: Finasteride (Finasteride 5 Mg Tablet) 5 mg PO DAILY [facility] Last Admin: 06/08/21 09:07 Dose: 5 mg Documented by: Glucose (Glucose Gel 15 Gm Gel..Gram.) 15 gm PO Q15M PRN; Protocol PRN Reason: per Hypoglycemia Standing Ord. Insulin Human Lispro (Insulin Lispro 100 Unit/Ml 3 Ml Vial) 0 unit SUBCUT QIDACHS [facility]; Protocol Last Admin: 06/08/21 08:10 Dose: 2 unit Documented by: Loperamide HCl (Loperamide Hcl 2 Mg Capsule) 4 mg PO Q6H PRN PRN Reason: diarrhea Last Admin: 06/03/21 21:14 Dose: 4 mg Documented by: Magnesium Hydroxide (Milk Of Magnesia 30 Ml Oral.Susp) 30 ml PO DAILY PRN PRN Reason: Constipation Metoprolol Succinate (Metoprolol Succinate Er 50 Mg Tab.Er.24h) 150 mg PO DAILY [facility]; Protocol Last Admin: 06/08/21 09:07 Dose: 150 mg Documented by: Multivitamins/Vitamin C (Multivitamin Tablet) 1 tab PO DAILY [facility] Last Admin: 06/08/21 09:08 Dose: 1 tab Documented by: Nitroglycerin (Nitroglycerin 0.4 Mg Tab.Subl) 0.4 mg SUBLINGUAL Q5M PRN PRN Reason: Chest Pain Omeprazole (Omeprazole 20 Mg Capsule.Dr) 20 mg PO DAILY [facility] Last Admin: 06/08/21 09:08 Dose: 20 mg Documented by: Psyllium Hydrophilic Mucilloid (Psyllium Seed 3.4 Gm Powd.Pack) 3.4 gm PO MOWEFR@0900 [facility] Last Admin: 06/07/21 09:28 Dose: Not Given Documented by: Quetiapine Fumarate (Quetiapine Fumarate 50 Mg Tablet) 50 mg PO BEDTIME [facility] Last Admin: 06/07/21 20:18 Dose: 50 mg Documented by: Risperidone (Risperidone 1 Mg Tablet) 1 mg PO BID [facility] Last Admin: 06/08/21 09:07 Dose: 1 mg Documented by: Tamsulosin HCl (Tamsulosin Hcl 0.4 Mg Capsule) 0.4 mg PO DAILY@1700 [facility] Last Admin: 06/07/21 18:26 Dose: Not Given Documented by: Trazodone HCl (Trazodone Hcl 25 Mg Halftab) 25 mg PO DAILY [facility] Last Admin: 06/08/21 09:07 Dose: 25 mg Documented by: Trazodone HCl (Trazodone Hcl 50 Mg Tablet) 50 mg PO BEDTIME [facility] Last Admin: 06/07/21 20:18 Dose: 50 mg Documented by: Trazodone HCl (Trazodone Hcl 50 Mg Tablet) 50 mg PO BEDTIME PRN PRN Reason: Insomnia Last Admin: 06/01/21 01:00 Dose: 50 mg Documented by: Vitamin D (Cholecalciferol (Vitamin D3) 25 Mcg Tablet) 50 mcg PO DAILY [facility] Last Admin: 06/08/21 09:08 Dose: 50 mcg Documented by: Allergies Allergies Allergy/AdvReac Type Severity Reaction Status Date / Time lactose AdvReac Diarrhea Verified 06/04/21 13:17 Assessment & Plan Assessment & Plan (1) Psychosis: Qualifiers: Psychosis type: unspecified psychosis type Qualified Code(s): F29 - Unspecified psychosis not due to a substance or known physiological condition Status: Acute Code(s): F29 - Unspecified psychosis not due to a substance or known physiological condition (2) Dementia: Qualifiers: Dementia behavioral disturbance: with behavioral disturbance Dementia type: unspecified type Qualified Code(s): F03.91 - Unspecified dementia with behavioral disturbance Status: Acute Code(s): F03.90 - Unspecified dementia without behavioral disturbance Assessment and Plan: the patient is an elderly male, mostly Amharic speaking with a long history of developmental problems and psychosis. The patient was brought into this facility since he become violent and aggressive after the taper of Valium. Plan 1. Taper Valium up to 2 mg p.o. daily 2. Diiscontinue Seroquel up to 25 mg po bid but keep Seroquel 50 mg po qhs. 3. increase Risperdal up to 1 mg p.o. b.i.d. 06/08/2021 Continue current regimen and plans. No changes were made today I spent minutes with the patient and/or on the patient floor today, greater than?50% of which was spent counseling/coordinating care. Reason for contiued inpatient stay Substantial Risk for: inability to function
[2021-06-08 11:37] LABS: Glucose, Whole Blood 260 mg/dL (60-115)
[2021-06-08 16:09] LABS: Glucose, Whole Blood 274 mg/dL (60-115)
--- NOTE | 2021-06-08 16:30 | PC.NURSE ---
Patient was much brighter and engaged this shift. OOR for breakfast and lunch. Fed himself. Ate 75% of both meals. Patient is alert and oriented with cognitive deficit. Difficult to assess memory due to language barrier and cognitive deficit however information he was providing was verified by his sister over the phone. Patient spoke of working as rn obgyn at the [employer] and also spoke of his father riding a motorcycle in [place] both of which are true. Patient was engaged in listening to [employer] music, demonstrating the chicken dance while in his chair and talking with this scientific writer and OT Luz. Patient told us he needed to use BR and utilizing walker with assist went to his room and used the toilet. Given attention and time he proves to be higher functioning than he initially presents.
[2021-06-08] MEDS: Tamsulosin HCL 0.4 MG CAPSULE PO (16:53)
[2021-06-08 20:52] LABS: Glucose, Whole Blood 216 mg/dL (60-115)
[2021-06-08] MEDS: traZODone HCL 50 MG TABLET PO (21:16)
[2021-06-08] MEDS: QUEtiapine Fumarate 50 MG TABLET PO (21:16)
[2021-06-08 21:47] VITALS: BP 119/72; PULSE 88; RESP 17; TEMP 36.2; O2SAT 95
[2021-06-09 06:00] VITALS: BP 109/60; PULSE 93; RESP 16; TEMP 36.4; O2SAT 92
[2021-06-09 06:55] LABS: Glucose, Whole Blood 193 mg/dL (60-115)
[2021-06-09 08:53] LABS: Glucose, Whole Blood 181 mg/dL (60-115)
[2021-06-09] MEDS: Insulin Lispro 100 UNIT/ML 3 ML VIAL SUBCUT ×4 (09:02→22:17)
[2021-06-09] MEDS: Metoprolol Succinate ER 50 MG TAB.ER.24H 150 MG PO (09:32)
[2021-06-09] MEDS: Finasteride 5 MG TABLET PO (09:33)
[2021-06-09] MEDS: Cholecalciferol (Vitamin D3) 25 MCG TABLET 50 MCG PO (09:33)
[2021-06-09] MEDS: diazePAM 2 MG TABLET PO (09:34)
[2021-06-09] MEDS: Omeprazole 20 MG CAPSULE.DR PO (09:34)
[2021-06-09] MEDS: risperiDONE 1 MG TABLET PO ×2 (09:34→22:13)
[2021-06-09] MEDS: traZODone HCL 25 MG HALFTAB PO (09:34)
[2021-06-09] MEDS: Multivitamin TABLET 1 TAB PO (09:34)
--- NOTE | 2021-06-09 10:00 | P.PNPSI_ITS ---
Subjective Subjective Date of Service: 06/09/21 Reason For Visit: Psychosis Subjective Notes: Conditional Voluntary Medical Problems Affecting Mental Status: Yes (Patient was seen and discussed in rounds. Records and plans reviewed. He ) Interim History: Patient was seen and discussed in rounds today. Records and plans reviewed. He has been more cheerful, interactive, watching TV with his peers. He is med compliant. No complaints or side effects. Eating and sleeping adequately. No changes were made today Medication Compliance: Yes Side effects from medications: No Review of Systems Review of Systems Yes all other systems are reviewed and are negative Mental Status Exam Mental Status Exam Narrative: Patient was seen in rounds today. He was laying comfortably in bed. He is alert, minimally interactive. Little eye contact. He spoke mostly in Malian but would respond briefly in Greenlandic. He appears cognitively impaired. No dangerous behaviors. Judgment is impaired. Diagnostics Vital Signs (24Hr): Vital Signs - 24 hr 06/08/21 21:47 06/09/21 06:00 Temperature 97.2 F 97.5 F Pulse Rate 88 93 Respiratory Rate 17 16 Blood Pressure 119/72 109/60 Pulse Oximetry 95 92 BMI result Body Mass Index 21.6 Labs Results: 05/31/21 11:48 05/31/21 11:48 Labs: Laboratory Results - last 48 hr 06/07/21 06/07/21 06/07/21 11:56 16:48 19:39 POC Glucose 266 H 293 H 346 H 06/08/21 06/08/21 06/08/21 06:58 11:30 16:04 POC Glucose 196 H 260 H 274 H 06/08/21 06/09/21 06/09/21 20:47 06:49 08:49 POC Glucose 216 H 193 H 181 H Imaging Radiology Impressions: ITS Impressions Chest X-Ray 05/31/21 12:18 IMPRESSION: No evidence for acute disease in the chest. Bibasilar atelectasis. No definite pneumonia is seen. Head CT 05/31/21 12:59 IMPRESSION: No acute intracranial pathology. Generalized atrophy and nonspecific periventricular white matter disease. Abdomen Ultrasound 05/31/21 13:10 IMPRESSION: Mild hepatic steatosis and hepatomegaly. No focal lesion seen. Visualized slightly contracted gallbladder, CBD and right kidneys unremarkable. Medications Medications Current Medications Acetaminophen (Acetaminophen 325 Mg Tablet) 975 mg PO Q8H PRN PRN Reason: Pain (Scale Score 7-10) Acetaminophen (Acetaminophen 325 Mg Tablet) 650 mg PO Q6H PRN PRN Reason: Headache/Pain Mild Scale (1-3) Al Hydroxide/Mg Hydroxide (Magnesium Hydrox/Alum Hydrox 30 Ml Oral.Susp) 30 ml PO Q6H PRN PRN Reason: Heartburn/Nausea Dextrose (Dextrose 50 % 25 Gm/50 Ml Vial) 25 gm IVPUSH Q15M PRN; Protocol PRN Reason: per Hypoglycemia Standing Ord. Diazepam (Diazepam 2 Mg Tablet) 2 mg PO DAILY [facility] Last Admin: 06/09/21 09:34 Dose: 2 mg Documented by: Famotidine (Famotidine 20 Mg Tablet) 40 mg PO DAILY [facility] Last Admin: 06/08/21 09:07 Dose: 40 mg Documented by: Finasteride (Finasteride 5 Mg Tablet) 5 mg PO DAILY [facility] Last Admin: 06/09/21 09:33 Dose: 5 mg Documented by: Glucose (Glucose Gel 15 Gm Gel..Gram.) 15 gm PO Q15M PRN; Protocol PRN Reason: per Hypoglycemia Standing Ord. Insulin Human Lispro (Insulin Lispro 100 Unit/Ml 3 Ml Vial) 0 unit SUBCUT QIDACHS [facility]; Protocol Last Admin: 06/09/21 09:02 Dose: 2 unit Documented by: Loperamide HCl (Loperamide Hcl 2 Mg Capsule) 4 mg PO Q6H PRN PRN Reason: diarrhea Last Admin: 06/03/21 21:14 Dose: 4 mg Documented by: Magnesium Hydroxide (Milk Of Magnesia 30 Ml Oral.Susp) 30 ml PO DAILY PRN PRN Reason: Constipation Metoprolol Succinate (Metoprolol Succinate Er 50 Mg Tab.Er.24h) 150 mg PO DAILY [facility]; Protocol Last Admin: 06/09/21 09:32 Dose: 150 mg Documented by: Multivitamins/Vitamin C (Multivitamin Tablet) 1 tab PO DAILY [facility] Last Admin: 06/09/21 09:34 Dose: 1 tab Documented by: Nitroglycerin (Nitroglycerin 0.4 Mg Tab.Subl) 0.4 mg SUBLINGUAL Q5M PRN PRN Reason: Chest Pain Omeprazole (Omeprazole 20 Mg Capsule.Dr) 20 mg PO DAILY [facility] Last Admin: 06/09/21 09:34 Dose: 20 mg Documented by: Psyllium Hydrophilic Mucilloid (Psyllium Seed 3.4 Gm Powd.Pack) 3.4 gm PO M OWEFR@0900 [facility] Last Admin: 06/07/21 09:28 Dose: Not Given Documented by: Quetiapine Fumarate (Quetiapine Fumarate 50 Mg Tablet) 50 mg PO BEDTIME [facility] Last Admin: 06/08/21 21:16 Dose: 50 mg Documented by: Risperidone (Risperidone 1 Mg Tablet) 1 mg PO BID [facility] Last Admin: 06/09/21 09:34 Dose: 1 mg Documented by: Tamsulosin HCl (Tamsulosin Hcl 0.4 Mg Capsule) 0.4 mg PO DAILY@1700 [facility] Last Admin: 06/08/21 16:53 Dose: 0.4 mg Documented by: Trazodone HCl (Trazodone Hcl 25 Mg Halftab) 25 mg PO DAILY [facility] Last Admin: 06/09/21 09:34 Dose: 25 mg Documented by: Trazodone HCl (Trazodone Hcl 50 Mg Tablet) 50 mg PO BEDTIME [facility] Last Admin: 06/08/21 21:16 Dose: 50 mg Documented by: Trazodone HCl (Trazodone Hcl 50 Mg Tablet) 50 mg PO BEDTIME PRN PRN Reason: Insomnia Last Admin: 06/01/21 01:00 Dose: 50 mg Documented by: Vitamin D (Cholecalciferol (Vitamin D3) 25 Mcg Tablet) 50 mcg PO DAILY [facility] Last Admin: 06/09/21 09:33 Dose: 50 mcg Documented by: Allergies Allergies Allergy/AdvReac Type Severity Reaction Status Date / Time lactose AdvReac Diarrhea Verified 06/04/21 13:17 Assessment & Plan Assessment & Plan (1) Psychosis: Qualifiers: Psychosis type: unspecified psychosis type Qualified Code(s): F29 - Unspecified psychosis not due to a substance or known physiological condition Status: Acute Code(s): F29 - Unspecified psychosis not due to a substance or known physiological condition (2) Dementia: Qualifiers: Dementia behavioral disturbance: with behavioral disturbance Dementia type: unspecified type Qualified Code(s): F03.91 - Unspecified dementia with behavioral disturbance Status: Acute Code(s): F03.90 - Unspecified dementia without behavioral disturbance Assessment and Plan: the patient is an elderly male, mostly Malian speaking with a long history of developmental problems and psychosis. The patient was brought into this facility since he become violent and aggressive after the taper of Valium. Plan 1. Taper Valium up to 2 mg p.o. daily 2. Diiscontinue Seroquel up to 25 mg po bid but keep Seroquel 50 mg po qhs. 3. increase Risperdal up to 1 mg p.o. b.i.d. 06/08/2021 Continue current regimen and plans. No changes were made today 06/09/2021 Continue current regimen and plans. No changes were made today I spent minutes with the patient and/or on the patient floor today, greater than?50% of which was spent counseling/coordinating care. Reason for contiued inpatient stay Substantial Risk for: inability to function
[2021-06-09 11:54] LABS: Glucose, Whole Blood 365 mg/dL (60-115)
[2021-06-09] MEDS: Famotidine 20 MG TABLET 40 MG PO (12:02)
[2021-06-09] MEDS: Loperamide HCl 2 MG CAPSULE 4 MG PO (12:30)
[2021-06-09 16:21] LABS: Glucose, Whole Blood 202 mg/dL (60-115)
[2021-06-09] MEDS: Tamsulosin HCL 0.4 MG CAPSULE PO (16:31)
[2021-06-09 19:56] VITALS: BP 139/79; PULSE 72; RESP 17; TEMP 36.3; O2SAT 98
[2021-06-09 21:48] LABS: Glucose, Whole Blood 183 mg/dL (60-115)
[2021-06-09] MEDS: traZODone HCL 50 MG TABLET PO ×2 (22:13→23:41)
[2021-06-09] MEDS: QUEtiapine Fumarate 50 MG TABLET PO (22:13)
[2021-06-10 06:00] VITALS: BP 122/76; PULSE 80; RESP 15; TEMP 36.2; O2SAT 94
[2021-06-10 06:57] LABS: Glucose, Whole Blood 169 mg/dL (60-115)
[2021-06-10] MEDS: Insulin Lispro 100 UNIT/ML 3 ML VIAL SUBCUT ×4 (08:29→20:42)
[2021-06-10] MEDS: risperiDONE 1 MG TABLET PO ×2 (09:26→20:25)
[2021-06-10] MEDS: Metoprolol Succinate ER 50 MG TAB.ER.24H 150 MG PO (09:26)
[2021-06-10] MEDS: Finasteride 5 MG TABLET PO (09:26)
[2021-06-10] MEDS: traZODone HCL 25 MG HALFTAB PO (09:26)
[2021-06-10] MEDS: diazePAM 2 MG TABLET PO (09:26)
[2021-06-10] MEDS: Famotidine 20 MG TABLET 40 MG PO (09:26)
[2021-06-10] MEDS: Multivitamin TABLET 1 TAB PO (09:26)
[2021-06-10] MEDS: Omeprazole 20 MG CAPSULE.DR PO (09:26)
[2021-06-10] MEDS: Cholecalciferol (Vitamin D3) 25 MCG TABLET 50 MCG PO (09:26)
[2021-06-10 09:27] VITALS: BP 122/76; PULSE 80; RESP 15; TEMP 36.2; O2SAT 97
[2021-06-10 11:31] LABS: Glucose, Whole Blood 330 mg/dL (60-115)
--- NOTE | 2021-06-10 12:06 | P.PNPSI_ITS ---
Subjective Subjective Date of Service: 06/10/21 Reason For Visit: Psychosis Subjective Notes: Conditional Voluntary Interim History: the nursing staff reports the patient is more appropriate but isolated in his room. He is out for medications and meals. He had diarrhea just lie probably due to lactose intolerance. He speaks with his sister over the phone. On interview, the patient refused to engage with this prescriber. Mental Status Exam Mental Status Exam Patient Appearance: Disheveled and Unkempt Patient Orientation: Person Patient Behavior: Passive and Suspicious Mood Description: Suspicious and Withdrawn Affect Description: Constricted Patient Cognition Impaired: Yes Ability to Follow Directions: Good Speech Pattern: No Speech Hallucinations: None Delusions: Paranoid Ideation Thought Process: Distracted Thought Content: positive for Poverty of Content Judgement: Poor Diagnostics Vital Signs (24Hr): Vital Signs - 24 hr 06/09/21 19:56 06/10/21 06:00 06/10/21 09:27 Temperature 97.3 F 97.2 F 97.2 F Pulse Rate 72 80 80 Respiratory Rate 17 15 15 Blood Pressure 139/79 122/76 122/76 Pulse Oximetry 98 94 97 BMI result Body Mass Index 21.6 Labs Results: 05/31/21 11:48 05/31/21 11:48 Labs: Laboratory Results - last 48 hr 06/08/21 06/08/21 06/09/21 16:04 20:47 06:49 POC Glucose 274 H 216 H 193 H 06/09/21 06/09/21 06/09/21 08:49 11:49 16:17 POC Glucose 181 H 365 H* 202 H 06/09/21 06/10/21 06/10/21 21:42 06:47 11:23 POC Glucose 183 H 169 H 330 H Imaging Radiology Impressions: ITS Impressions Chest X-Ray 05/31/21 12:18 IMPRESSION: No evidence for acute disease in the chest. Bibasilar atelectasis. No definite pneumonia is seen. Head CT 05/31/21 12:59 IMPRESSION: No acute intracranial pathology. Generalized atrophy and nonspecific periventricular white matter disease. Abdomen Ultrasound 05/31/21 13:10 IMPRESSION: Mild hepatic steatosis and hepatomegaly. No focal lesion seen. Visualized slightly contracted gallbladder, CBD and right kidneys unremarkable. Medications Medications Current Medications Acetaminophen (Acetaminophen 325 Mg Tablet) 975 mg PO Q8H PRN PRN Reason: Pain (Scale Score 7-10) Acetaminophen (Acetaminophen 325 Mg Tablet) 650 mg PO Q6H PRN PRN Reason: Headache/Pain Mild Scale (1-3) Al Hydroxide/Mg Hydroxide (Magnesium Hydrox/Alum Hydrox 30 Ml Oral.Susp) 30 ml PO Q6H PRN PRN Reason: Heartburn/Nausea Dextrose (Dextrose 50 % 25 Gm/50 Ml Vial) 25 gm IVPUSH Q15M PRN; Protocol PRN Reason: per Hypoglycemia Standing Ord. Diazepam (Diazepam 2 Mg Tablet) 2 mg PO DAILY [facility] Last Admin: 06/10/21 09:26 Dose: 2 mg Documented by: Famotidine (Famotidine 20 Mg Tablet) 40 mg PO DAILY [facility] Last Admin: 06/10/21 09:26 Dose: 40 mg Documented by: Finasteride (Finasteride 5 Mg Tablet) 5 mg PO DAILY [facility] Last Admin: 06/10/21 09:26 Dose: 5 mg Documented by: Glucose (Glucose Gel 15 Gm Gel..Gram.) 15 gm PO Q15M PRN; Protocol PRN Reason: per Hypoglycemia Standing Ord. Insulin Human Lispro (Insulin Lispro 100 Unit/Ml 3 Ml Vial) 0 unit SUBCUT QIDACHS [facility]; Protocol Last Admin: 06/10/21 11:37 Dose: 8 unit Documented by: Loperamide HCl (Loperamide Hcl 2 Mg Capsule) 4 mg PO Q6H PRN PRN Reason: diarrhea Last Admin: 06/09/21 12:30 Dose: 4 mg Documented by: Magnesium Hydroxide (Milk Of Magnesia 30 Ml Oral.Susp) 30 ml PO DAILY PRN PRN Reason: Constipation Metoprolol Succinate (Metoprolol Succinate Er 50 Mg Tab.Er.24h) 150 mg PO DAILY [facility]; Protocol Last Admin: 06/10/21 09:26 Dose: 150 mg Documented by: Multivitamins/Vitamin C (Multivitamin Tablet) 1 tab PO DAILY [facility] Last Admin: 06/10/21 09:26 Dose: 1 tab Documented by: Nitroglycerin (Nitroglycerin 0.4 Mg Tab.Subl) 0.4 mg SUBLINGUAL Q5M PRN PRN Reason: Chest Pain Omeprazole (Omeprazole 20 Mg Capsule.Dr) 20 mg PO DAILY [facility] Last Admin: 06/10/21 09:26 Dose: 20 mg Documented by: Psyllium Hydrophilic Mucilloid (Psyllium Seed 3.4 Gm Powd.Pack) 3.4 gm PO MOWEFR@0900 [facility] Last Admin: 06/10/21 09:26 Dose: 3.4 gm Documented by: Quetiapine Fumarate (Quetiapine Fumarate 50 Mg Tablet) 50 mg PO BEDTIME [facility] Last Admin: 06/09/21 22:13 Dose: 50 mg Documented by: Risperidone (Risperidone 1 Mg Tablet) 1 mg PO BID [facility] Last Admin: 06/10/21 09:26 Dose: 1 mg Documented by: Tamsulosin HCl (Tamsulosin Hcl 0.4 Mg Capsule) 0.4 mg PO DAILY@1700 [facility] Last Admin: 06/09/21 16:31 Dose: 0.4 mg Documented by: Trazodone HCl (Trazodone Hcl 25 Mg Halftab) 25 mg PO DAILY [facility] Last Admin: 06/10/21 09:26 Dose: 25 mg Documented by: Trazodone HCl (Trazodone Hcl 50 Mg Tablet) 50 mg PO BEDTIME [facility] Last Admin: 06/09/21 22:13 Dose: 50 mg Documented by: Trazodone HCl (Trazodone Hcl 50 Mg Tablet) 50 mg PO BEDTIME PRN PRN Reason: Insomnia Last Admin: 06/09/21 23:41 Dose: 50 mg Documented by: Vitamin D (Cholecalciferol (Vitamin D3) 25 Mcg Tablet) 50 mcg PO DAILY [facility] Last Admin: 06/10/21 09:26 Dose: 50 mcg Documented by: Allergies Allergies Allergy/AdvReac Type Severity Reaction Status Date / Time lactose AdvReac Diarrhea Verified 06/04/21 13:17 Assessment & Plan Assessment & Plan (1) Psychosis: Qualifiers: Psychosis type: unspecified psychosis type Qualified Code(s): F29 - Unspecified psychosis not due to a substance or known physiological condition Status: Acute Code(s): F29 - Unspecified psychosis not due to a substance or known physiological condition (2) Dementia: Qualifiers: Dementia behavioral disturbance: with behavioral disturbance Dementia type: unspecified type Qualified Code(s): F03.91 - Unspecified dementia with behavioral disturbance Status: Acute Code(s): F03.90 - Unspecified dementia without behavioral disturbance Assessment and Plan: the patient is an elderly male, mostly [place]er speaking with a long history of developmental problems and psychosis. The patient was brought into this facility since he become violent and aggressive after the taper of Valium. Plan 1. Discontinue Valium 2 mg p.o. daily 2. Discontinue Seroquel up to 25 mg po bid but keep Seroquel 50 mg po qhs. 3. Keep Risperdal 1 mg p.o. b.i.d. I spent minutes with the patient and/or on the patient floor today, greater than?50% of which was spent counseling/coordinating care. Reason for contiued inpatient stay Substantial Risk for: inability to function, rapid decompensation and med/psych decompensation
[2021-06-10 17:06] LABS: Glucose, Whole Blood 255 mg/dL (60-115)
[2021-06-10] MEDS: Tamsulosin HCL 0.4 MG CAPSULE PO (17:15)
[2021-06-10 18:00] VITALS: BP 112/62; PULSE 78; RESP 18; TEMP 36.4; O2SAT 94
[2021-06-10] MEDS: QUEtiapine Fumarate 50 MG TABLET PO (20:25)
[2021-06-10] MEDS: traZODone HCL 50 MG TABLET PO ×2 (20:25→23:07)
[2021-06-10 20:45] LABS: Glucose, Whole Blood 203 mg/dL (60-115)
[2021-06-11 06:00] VITALS: BP 117/57; PULSE 70; TEMP 36.3; O2SAT 93
[2021-06-11 06:56] LABS: Glucose, Whole Blood 193 mg/dL (60-115)
[2021-06-11] MEDS: Insulin Lispro 100 UNIT/ML 3 ML VIAL SUBCUT ×3 (09:12→20:38)
[2021-06-11] MEDS: Metoprolol Succinate ER 50 MG TAB.ER.24H 150 MG PO (09:13)
[2021-06-11] MEDS: Multivitamin TABLET 1 TAB PO (09:13)
[2021-06-11] MEDS: Omeprazole 20 MG CAPSULE.DR PO (09:13)
[2021-06-11] MEDS: risperiDONE 1 MG TABLET PO ×2 (09:13→20:21)
[2021-06-11] MEDS: Famotidine 20 MG TABLET 40 MG PO (09:13)
[2021-06-11] MEDS: traZODone HCL 25 MG HALFTAB PO (09:13)
[2021-06-11] MEDS: Finasteride 5 MG TABLET PO (09:13)
[2021-06-11] MEDS: Cholecalciferol (Vitamin D3) 25 MCG TABLET 50 MCG PO (09:13)
[2021-06-11 12:03] LABS: Glucose, Whole Blood 269 mg/dL (60-115)
--- NOTE | 2021-06-11 16:05 | P.PNPSI_ITS ---
Subjective Subjective Date of Service: 06/11/21 Reason For Visit: Psychosis Subjective Notes: Conditional Voluntary Interim History: As per the nursing staff the patient reports that he has taking a shower and he was able to dress himself. Now he is able to feed himself and he can understand short conversations. On interview the patient refused to engage with this prescriber but he was able to eat his meals. At this moment, the patient is more engageable with staff Mental Status Exam Mental Status Exam Patient Appearance: Disheveled and Unkempt Patient Orientation: Person Level of Consciousness: Awake Patient Behavior: Guarded and Passive Mood Description: Blunted Affect Description: Constricted Patient Cognition Impaired: Yes Ability to Follow Directions: Good Speech Pattern: Appropriate Delusions: Paranoid Ideation Thought Process: Evasive Thought Content: positive for Circumstantial and positive for Poverty of Content Judgement: Fair Diagnostics Vital Signs (24Hr): Vital Signs - 24 hr 06/10/21 18:00 06/11/21 06:00 Temperature 97.5 F 97.3 F Pulse Rate 78 70 Respiratory Rate 18 Blood Pressure 112/62 117/57 L Pulse Oximetry 94 93 BMI result Body Mass Index 21.6 Labs Results: 05/31/21 11:48 05/31/21 11:48 Labs: Laboratory Results - last 48 hr 06/09/21 06/09/21 06/10/21 16:17 21:42 06:47 POC Glucose 202 H 183 H 169 H 06/10/21 06/10/21 06/10/21 11:23 17:03 20:32 POC Glucose 330 H 255 H 203 H 06/11/21 06/11/21 06:48 11:56 POC Glucose 193 H 269 H Imaging Radiology Impressions: ITS Impressions Chest X-Ray 05/31/21 12:18 IMPRESSION: No evidence for acute disease in the chest. Bibasilar atelectasis. No definite pneumonia is seen. Head CT 05/31/21 12:59 IMPRESSION: No acute intracranial pathology. Generalized atrophy and nonspecific periventricular white matter disease. Abdomen Ultrasound 05/31/21 13:10 IMPRESSION: Mild hepatic steatosis and hepatomegaly. No focal lesion seen. Visualized slightly contracted gallbladder, CBD and right kidneys unremarkable. Medications Medications Current Medications Acetaminophen (Acetaminophen 325 Mg Tablet) 975 mg PO Q8H PRN PRN Reason: Pain (Scale Score 7-10) Acetaminophen (Acetaminophen 325 Mg Tablet) 650 mg PO Q6H PRN PRN Reason: Headache/Pain Mild Scale (1-3) Al Hydroxide/Mg Hydroxide (Magnesium Hydrox/Alum Hydrox 30 Ml Oral.Susp) 30 ml PO Q6H PRN PRN Reason: Heartburn/Nausea Dextrose (Dextrose 50 % 25 Gm/50 Ml Vial) 25 gm IVPUSH Q15M PRN; Protocol PRN Reason: per Hypoglycemia Standing Ord. Famotidine (Famotidine 20 Mg Tablet) 40 mg PO DAILY [facility] Last Admin: 06/11/21 09:13 Dose: 40 mg Documented by: Finasteride (Finasteride 5 Mg Tablet) 5 mg PO DAILY [facility] Last Admin: 06/11/21 09:13 Dose: 5 mg Documented by: Glucose (Glucose Gel 15 Gm Gel..Gram.) 15 gm PO Q15M PRN; Protocol PRN Reason: per Hypoglycemia Standing Ord. Insulin Human Lispro (Insulin Lispro 100 Unit/Ml 3 Ml Vial) 0 unit SUBCUT QID [facility]; Protocol Last Admin: 06/11/21 12:55 Dose: 2 unit Documented by: Loperamide HCl (Loperamide Hcl 2 Mg Capsule) 4 mg PO Q6H PRN PRN Reason: diarrhea Last Admin: 06/09/21 12:30 Dose: 4 mg Documented by: Magnesium Hydroxide (Milk Of Magnesia 30 Ml Oral.Susp) 30 ml PO DAILY PRN PRN Reason: Constipation Metoprolol Succinate (Metoprolol Succinate Er 50 Mg Tab.Er.24h) 150 mg PO DAILY [facility]; Protocol Last Admin: 06/11/21 09:13 Dose: 150 mg Documented by: Multivitamins/Vitamin C (Multivitamin Tablet) 1 tab PO DAILY [facility] Last Admin: 06/11/21 09:13 Dose: 1 tab Documented by: Nitroglycerin (Nitroglycerin 0.4 Mg Tab.Subl) 0.4 mg SUBLINGUAL Q5M PRN PRN Reason: Chest Pain Omeprazole (Omeprazole 20 Mg Capsule.Dr) 20 mg PO DAILY [facility] Last Admin: 06/11/21 09:13 Dose: 20 mg Documented by: Psyllium Hydrophilic Mucilloid (Psyllium Seed 3.4 Gm Powd.Pack) 3.4 gm PO MOWEFR@0900 [facility] Last Admin: 06/10/21 09:26 Dose: 3.4 gm Documented by: Quetiapine Fumarate (Quetiapine Fumarate 50 Mg Tablet) 50 mg PO BEDTIME [facility] Last Admin: 06/10/21 20:25 Dose: 50 mg Documented by: Risperidone (Risperidone 1 Mg Tablet) 1 mg PO BID [facility] Last Admin: 06/11/21 09:13 Dose: 1 mg Documented by: Tamsulosin HCl (Tamsulosin Hcl 0.4 Mg Capsule) 0.4 mg PO DAILY@1700 [facility] Last Admin: 06/10/21 17:15 Dose: 0.4 mg Documented by: Trazodone HCl (Trazodone Hcl 25 Mg Halftab) 25 mg PO DAILY [facility] Last Admin: 06/11/21 09:13 Dose: 25 mg Documented by: Trazodone HCl (Trazodone Hcl 50 Mg Tablet) 50 mg PO BEDTIME [facility] Last Admin: 06/10/21 20:25 Dose: 50 mg Documented by: Trazodone HCl (Trazodone Hcl 50 Mg Tablet) 50 mg PO BEDTIME PRN PRN Reason: Insomnia Last Admin: 06/10/21 23:07 Dose: 50 mg Documented by: Vitamin D (Cholecalciferol (Vitamin D3) 25 Mcg Tablet) 50 mcg PO DAILY [facility] Last Admin: 06/11/21 09:13 Dose: 50 mcg Documented by: Allergies Allergies Allergy/AdvReac Type Severity Reaction Status Date / Time lactose AdvReac Diarrhea Verified 06/04/21 13:17 Assessment & Plan Assessment & Plan (1) Psychosis: Qualifiers: Psychosis type: unspecified psychosis type Qualified Code(s): F29 - Unspecified psychosis not due to a substance or known physiological condition Status: Acute Code(s): F29 - Unspecified psychosis not due to a substance or known physiological condition (2) Dementia: Qualifiers: Dementia behavioral disturbance: with behavioral disturbance Dementia type: unspecified type Qualified Code(s): F03.91 - Unspecified dementia with behavioral disturbance Status: Acute Code(s): F03.90 - Unspecified dementia without behavioral disturbance Assessment and Plan: the patient is an elderly male, mostly [place] speaking with a long history of developmental problems and psychosis. The patient was brought into this facility since he become violent and aggressive after the taper of Valium. Plan 1. Discontinue Valium 2 mg p.o. daily 2. Discontinue Seroquel up to 25 mg po bid but keep Seroquel 50 mg po qhs. 3. Keep Risperdal 1 mg p.o. b.i.d. I spent minutes with the patient and/or on the patient floor today, greater than?50% of which was spent counseling/coordinating care. Reason for contiued inpatient stay Substantial Risk for: inability to function, rapid decompensation and med/psych decompensation
[2021-06-11 18:00] VITALS: BP 146/79; PULSE 82; RESP 16; TEMP 36.3; O2SAT 99
[2021-06-11 20:17] VITALS: BP 146/79; PULSE 82
[2021-06-11] MEDS: Nitroglycerin 0.4 MG TAB.SUBL SUBLINGUAL (20:17)
[2021-06-11] MEDS: Tamsulosin HCL 0.4 MG CAPSULE PO (20:22)
[2021-06-11] MEDS: QUEtiapine Fumarate 50 MG TABLET PO (20:22)
[2021-06-11] MEDS: traZODone HCL 50 MG TABLET PO (20:23)
[2021-06-11 20:31] LABS: Glucose, Whole Blood 305 mg/dL (60-115)
[2021-06-12 06:44] LABS: Glucose, Whole Blood 178 mg/dL (60-115)
[2021-06-12 08:50] VITALS: BP 119/68; PULSE 76; RESP 16; TEMP 36.3; O2SAT 94
[2021-06-12] MEDS: Insulin Lispro 100 UNIT/ML 3 ML VIAL SUBCUT ×4 (08:53→22:35)
[2021-06-12] MEDS: Metoprolol Succinate ER 50 MG TAB.ER.24H 150 MG PO (08:54)
[2021-06-12] MEDS: Famotidine 20 MG TABLET 40 MG PO (08:54)
[2021-06-12] MEDS: Omeprazole 20 MG CAPSULE.DR PO (08:55)
[2021-06-12] MEDS: risperiDONE 1 MG TABLET PO ×2 (08:55→22:38)
[2021-06-12] MEDS: traZODone HCL 25 MG HALFTAB PO (08:55)
[2021-06-12] MEDS: Multivitamin TABLET 1 TAB PO (08:55)
[2021-06-12] MEDS: Finasteride 5 MG TABLET PO (09:14)
[2021-06-12] MEDS: Cholecalciferol (Vitamin D3) 25 MCG TABLET 50 MCG PO (09:14)
[2021-06-12 11:38] LABS: Glucose, Whole Blood 274 mg/dL (60-115)
--- NOTE | 2021-06-12 14:59 | P.PNPSI_ITS ---
Subjective Subjective Date of Service: 06/12/21 Reason For Visit: Psychosis Subjective Notes: Conditional Voluntary Interim History: The nursing staff reported that the patient was visible in the unit, he slept well last night and he was able to take care of himself. On interview, the patient for the 1st time was able to have his mood chat with me with a limited broken [place]ic is stating that he is okay and he wants to go home. He was paranoid with a black staff member and he was nonsensical at times Mental Status Exam Mental Status Exam Patient Appearance: Unkempt Patient Orientation: Person Level of Consciousness: Awake Patient Behavior: Appropriate Mood Description: Calm Affect Description: Withdrawn Patient Cognition Impaired: Yes Ability to Follow Directions: Fair Speech Pattern: Clear Delusions: Paranoid Ideation Thought Process: Distracted Thought Content: positive for Loose Associations and positive for Thought Blocking Judgement: Poor Diagnostics Vital Signs (24Hr): Vital Signs - 24 hr 06/11/21 18:00 06/11/21 20:17 06/12/21 08:50 Temperature 97.4 F 97.3 F Pulse Rate 82 82 76 Respiratory Rate 16 16 Blood Pressure 146/79 H 146/79 H 119/68 Pulse Oximetry 99 94 BMI result Body Mass Index 21.6 Labs Results: 05/31/21 11:48 05/31/21 11:48 Labs: Laboratory Results - last 48 hr 06/10/21 06/10/21 06/11/21 17:03 20:32 06:48 POC Glucose 255 H 203 H 193 H 06/11/21 06/11/21 06/12/21 11:56 20:26 06:37 POC Glucose 269 H 305 H 178 H 06/12/21 11:33 POC Glucose 274 H Imaging Radiology Impressions: ITS Impressions Chest X-Ray 05/31/21 12:18 IMPRESSION: No evidence for acute disease in the chest. Bibasilar atelectasis. No definite pneumonia is seen. Head CT 05/31/21 12:59 IMPRESSION: No acute intracranial pathology. Generalized atrophy and nonspecific periventricular white matter disease. Abdomen Ultrasound 05/31/21 13:10 IMPRESSION: Mild hepatic steatosis and hepatomegaly. No focal lesion seen. Visualized slightly contracted gallbladder, CBD and right kidneys unremarkable. Medications Medications Current Medications Acetaminophen (Acetaminophen 325 Mg Tablet) 975 mg PO Q8H PRN PRN Reason: Pain (Scale Score 7-10) Acetaminophen (Acetaminophen 325 Mg Tablet) 650 mg PO Q6H PRN PRN Reason: Headache/Pain Mild Scale (1-3) Al Hydroxide/Mg Hydroxide (Magnesium Hydrox/Alum Hydrox 30 Ml Oral.Susp) 30 ml PO Q6H PRN PRN Reason: Heartburn/Nausea Dextrose (Dextrose 50 % 25 Gm/50 Ml Vial) 25 gm IVPUSH Q15M PRN; Protocol PRN Reason: per Hypoglycemia Standing Ord. Famotidine (Famotidine 20 Mg Tablet) 40 mg PO DAILY [facility] Last Admin: 06/12/21 08:54 Dose: 40 mg Documented by: Finasteride (Finasteride 5 Mg Tablet) 5 mg PO DAILY [facility] Last Admin: 06/12/21 09:14 Dose: 5 mg Documented by: Glucose (Glucose Gel 15 Gm Gel..Gram.) 15 gm PO Q15M PRN; Protocol PRN Reason: per Hypoglycemia Standing Ord. Insulin Human Lispro (Insulin Lispro 100 Unit/Ml 3 Ml Vial) 0 unit SUBCUT QIDACHS [facility]; Protocol Last Admin: 06/12/21 11:42 Dose: 6 unit Documented by: Loperamide HCl (Loperamide Hcl 2 Mg Capsule) 4 mg PO Q6H PRN PRN Reason: diarrhea Last Admin: 06/09/21 12:30 Dose: 4 mg Documented by: Magnesium Hydroxide (Milk Of Magnesia 30 Ml Oral.Susp) 30 ml PO DAILY PRN PRN Reason: Constipation Metoprolol Succinate (Metoprolol Succinate Er 50 Mg Tab.Er.24h) 150 mg PO DAILY [facility]; Protocol Last Admin: 06/12/21 08:54 Dose: 150 mg Documented by: Multivitamins/Vitamin C (Multivitamin Tablet) 1 tab PO DAILY [facility] Last Admin: 06/12/21 08:55 Dose: 1 tab Documented by: Nitroglycerin (Nitroglycerin 0.4 Mg Tab.Subl) 0.4 mg SUBLINGUAL Q5M PRN PRN Reason: Chest Pain Last Admin: 06/11/21 20:17 Dose: 0.4 mg Documented by: Omeprazole (Omeprazole 20 Mg Capsule.Dr) 20 mg PO DAILY [facility] Last Admin: 06/12/21 08:55 Dose: 20 mg Documented by: Psyllium Hydrophilic Mucilloid (Psyllium Seed 3.4 Gm Powd.Pack) 3.4 gm PO MOWEFR@0900 [facility] Last Admin: 06/12/21 08:55 Dose: 3.4 gm Documented by: Quetiapine Fumarate (Quetiapine Fumarate 50 Mg Tablet) 50 mg PO BEDTIME [facility] Last Admin: 06/11/21 20:22 Dose: 50 mg Documented by: Risperidone (Risperidone 1 Mg Tablet) 1 mg PO BID [facility] Last Admin: 06/12/21 08:55 Dose: 1 mg Documented by: Tamsulosin HCl (Tamsulosin Hcl 0.4 Mg Capsule) 0.4 mg PO DAILY@1700 [facility] Last Admin: 06/11/21 20:22 Dose: 0.4 mg Documented by: Trazodone HCl (Trazodone Hcl 25 Mg Halftab) 25 mg PO DAILY [facility] Last Admin: 06/12/21 08:55 Dose: 25 mg Documented by: Trazodone HCl (Trazodone Hcl 50 Mg Tablet) 50 mg PO BEDTIME [facility] Last Admin: 06/11/21 20:23 Dose: 50 mg Documented by: Trazodone HCl (Trazodone Hcl 50 Mg Tablet) 50 mg PO BEDTIME PRN PRN Reason: Insomnia Last Admin: 06/10/21 23:07 Dose: 50 mg Documented by: Vitamin D (Cholecalciferol (Vitamin D3) 25 Mcg Tablet) 50 mcg PO DAILY [facility] Last Admin: 06/12/21 09:14 Dose: 50 mcg Documented by: Allergies Allergies Allergy/AdvReac Type Severity Reaction Status Date / Time lactose AdvReac Diarrhea Verified 06/04/21 13:17 Assessment & Plan Assessment & Plan (1) Psychosis: Qualifiers: Psychosis type: unspecified psychosis type Qualified Code(s): F29 - Unspecified psychosis not due to a substance or known physiological condition Status: Acute Code(s): F29 - Unspecified psychosis not due to a substance or known physiological condition (2) Dementia: Qualifiers: Dementia behavioral disturbance: with behavioral disturbance Dementia type: unspecified type Qualified Code(s): F03.91 - Unspecified dementia with behavioral disturbance Status: Acute Code(s): F03.90 - Unspecified dementia without behavioral disturbance Assessment and Plan: the patient is an elderly male, mostly Bulgarian speaking with a long history of developmental problems and psychosis. The patient was brought into this facility since he become violent and aggressive after the taper of Valium. Plan 1. Discontinue Valium 2 mg p.o. daily 2. Discontinue Seroquel up to 25 mg po bid but keep Seroquel 50 mg po qhs. 3. Keep Risperdal 1 mg p.o. b.i.d. I spent minutes with the patient and/or on the patient floor today, greater than?50% of which was spent counseling/coordinating care. Reason for contiued inpatient stay Substantial Risk for: inability to function, rapid decompensation and med/psych decompensation
[2021-06-12 16:52] LABS: Glucose, Whole Blood 258 mg/dL (60-115)
[2021-06-12] MEDS: Tamsulosin HCL 0.4 MG CAPSULE PO (16:55)
[2021-06-12 18:00] VITALS: BP 164/71; PULSE 100; RESP 20; TEMP 36; O2SAT 100
[2021-06-12] MEDS: traZODone HCL 50 MG TABLET PO (21:38)
[2021-06-12] MEDS: QUEtiapine Fumarate 50 MG TABLET PO (21:39)
[2021-06-12] MEDS: Insulin Glargine,Hum.rec.anlog 100 UNIT/ML 10 ML VIAL 10 UNIT SUBCUT (22:36)
[2021-06-12 22:44] LABS: Glucose, Whole Blood 230 mg/dL (60-115)
--- NOTE | 2021-06-13 | ECG_ITS ---
Test Reason : chest pain Blood Pressure : / mmHG Vent. Rate : 080 BPM Atrial Rate : 080 BPM P-R Int : 216 ms QRS Dur : 096 ms QT Int : 416 ms P-R-T Axes : 074 043 052 degrees QTc Int : 479 ms Sinus rhythm with 1st degree A-V block with Premature atrial complexes Otherwise normal ECG When compared with ECG of 31-MAY-2021 11:27, Non-specific change in ST segment in Lateral leads Nonspecific T wave abnormality, improved in Lateral leads Referred By: Jose L Thomson Electronically Signed By:Zohaib Avalos
[2021-06-13 05:20] LABS: Glucose, Whole Blood 157 mg/dL (60-115)
[2021-06-13 09:39] VITALS: BP 144/77; PULSE 77; RESP 16; TEMP 36.6; O2SAT 95
[2021-06-13 09:41] LABS: Glucose, Whole Blood 160 mg/dL (60-115)
[2021-06-13] MEDS: Metoprolol Succinate ER 50 MG TAB.ER.24H 150 MG PO (09:41)
[2021-06-13] MEDS: Multivitamin TABLET 1 TAB PO (09:42)
[2021-06-13] MEDS: Famotidine 20 MG TABLET 40 MG PO (09:42)
[2021-06-13] MEDS: Omeprazole 20 MG CAPSULE.DR PO (09:42)
[2021-06-13] MEDS: traZODone HCL 25 MG HALFTAB PO (09:42)
[2021-06-13] MEDS: Finasteride 5 MG TABLET PO (09:42)
[2021-06-13] MEDS: Cholecalciferol (Vitamin D3) 25 MCG TABLET 50 MCG PO (09:42)
[2021-06-13] MEDS: risperiDONE 1 MG TABLET PO ×2 (09:42→21:02)
[2021-06-13 11:20] VITALS: BMI 24.3
[2021-06-13 11:59] LABS: Glucose, Whole Blood 210 mg/dL (60-115)
--- NOTE | 2021-06-13 15:28 | PC.NURSE ---
VALENZUELA met with patient in his room and provided necessary items to complete morning ADL. Patient went into the bathroom and performed personal hygiene with minimal assistance from VALENZUELA. Patient required verbal cues to wash aj area and follow through with hand washing. Patient was able to doff and don depends/pants I.
--- NOTE | 2021-06-13 16:14 | P.PNPSI_ITS ---
Subjective Subjective Date of Service: 06/13/21 Reason For Visit: Psychosis Subjective Notes: Conditional Voluntary Interim History: the nursing staff reported that the patient is irritable around a peer who is very intrusive. His blood sugars were high but now it is much better with Lantus. We had a family meeting over the Internet and the patient was much better. On interview, the patient denies new symptoms Mental Status Exam Mental Status Exam Patient Appearance: Disheveled and Unkempt Patient Orientation: Person Level of Consciousness: Awake Patient Behavior: Guarded and Passive Mood Description: Suspicious and Withdrawn Affect Description: Constricted Patient Cognition Impaired: Yes Ability to Follow Directions: Good Speech Pattern: Impoverished and Monotone Hallucinations: None Delusions: Paranoid Ideation Thought Process: Linear Thought Content: positive for [place], positive for Poverty of Content and positive for Loose Associations Judgement: Fair Diagnostics Vital Signs (24Hr): Vital Signs - 24 hr 06/12/21 18:00 06/13/21 09:39 Temperature 96.8 F 97.9 F Pulse Rate 100 77 Respiratory Rate 20 16 Blood Pressure 164/71 H 144/77 H Pulse Oximetry 100 95 BMI result Body Mass Index 24.3 Labs Results: 05/31/21 11:48 05/31/21 11:48 Labs: Laboratory Results - last 48 hr 06/11/21 06/12/21 06/12/21 20:26 06:37 11:33 POC Glucose 305 H 178 H 274 H 06/12/21 06/12/21 06/13/21 16:47 21:14 05:08 POC Glucose 258 H 230 H 157 H 06/13/21 06/13/21 09:34 11:55 POC Glucose 160 H 210 H Imaging Radiology Impressions: ITS Impressions Chest X-Ray 05/31/21 12:18 IMPRESSION: No evidence for acute disease in the chest. Bibasilar atelectasis. No definite pneumonia is seen. Head CT 05/31/21 12:59 IMPRESSION: No acute intracranial pathology. Generalized atrophy and nonspecific periventricular white matter disease. Abdomen Ultrasound 05/31/21 13:10 IMPRESSION: Mild hepatic steatosis and hepatomegaly. No focal lesion seen. Visualized slightly contracted gallbladder, CBD and right kidneys unremarkable. Medications Medications Current Medications Acetaminophen (Acetaminophen 325 Mg Tablet) 975 mg PO Q8H PRN PRN Reason: Pain (Scale Score 7-10) Acetaminophen (Acetaminophen 325 Mg Tablet) 650 mg PO Q6H PRN PRN Reason: Headache/Pain Mild Scale (1-3) Al Hydroxide/Mg Hydroxide (Magnesium Hydrox/Alum Hydrox 30 Ml Oral.Susp) 30 ml PO Q6H PRN PRN Reason: Heartburn/Nausea Dextrose (Dextrose 50 % 25 Gm/50 Ml Vial) 25 gm IVPUSH Q15M PRN; Protocol PRN Reason: per Hypoglycemia Standing Ord. Famotidine (Famotidine 20 Mg Tablet) 40 mg PO DAILY [facility] Last Admin: 06/13/21 09:42 Dose: 40 mg Documented by: Finasteride (Finasteride 5 Mg Tablet) 5 mg PO DAILY [facility] Last Admin: 06/13/21 09:42 Dose: 5 mg Documented by: Glucose (Glucose Gel 15 Gm Gel..Gram.) 15 gm PO Q15M PRN; Protocol PRN Reason: per Hypoglycemia Standing Ord. Insulin Glargine (Insulin Glargine,Hum.Rec.Anlog 100 Unit/Ml 10 Ml Vial) 10 unit SUBCUT BEDTIME [facility] Last Admin: 06/12/21 22:36 Dose: 10 unit Documented by: Insulin Human Lispro (Insulin Lispro 100 Unit/Ml 3 Ml Vial) 0 unit SUBCUT QIDACHS [facility]; Protocol Last Admin: 06/13/21 12:05 Dose: Not Given Documented by: Loperamide HCl (Loperamide Hcl 2 Mg Capsule) 4 mg PO Q6H PRN PRN Reason: diarrhea Last Admin: 06/09/21 12:30 Dose: 4 mg Documented by: Magnesium Hydroxide (Milk Of Magnesia 30 Ml Oral.Susp) 30 ml PO DAILY PRN PRN Reason: Constipation Metoprolol Succinate (Metoprolol Succinate Er 50 Mg Tab.Er.24h) 150 mg PO DAILY [facility]; Protocol Last Admin: 06/13/21 09:41 Dose: 150 mg Documented by: Multivitamins/Vitamin C (Multivitamin Tablet) 1 tab PO DAILY [facility] Last Admin: 06/13/21 09:42 Dose: 1 tab Documented by: Nitroglycerin (Nitroglycerin 0.4 Mg Tab.Subl) 0.4 mg SUBLINGUAL Q5M PRN PRN Reason: Chest Pain Last Admin: 06/11/21 20:17 Dose: 0.4 mg Documented by: Omeprazole (Omeprazole 20 Mg Capsule.Dr) 20 mg PO DAILY [facility] Last Admin: 06/13/21 09:42 Dose: 20 mg Documented by: Psyllium Hydrophilic Mucilloid (Psyllium Seed 3.4 Gm Powd.Pack) 3.4 gm PO MOWEFR@0900 [facility] Last Admin: 06/12/21 08:55 Dose: 3.4 gm Documented by: Quetiapine Fumarate (Quetiapine Fumarate 50 Mg Tablet) 50 mg PO BEDTIME [facility] Last Admin: 06/12/21 21:39 Dose: 50 mg Documented by: Risperidone (Risperidone 1 Mg Tablet) 1 mg PO BID [facility] Last Admin: 06/13/21 09:42 Dose: 1 mg Documented by: Sodium Chloride (Sodium Chloride 0.65 % Nasal 44 Ml Sprbtl) 1 spray NOSTRIL-B Q1H PRN PRN Reason: Dry Nasal Passages Tamsulosin HCl (Tamsulosin Hcl 0.4 Mg Capsule) 0.4 mg PO DAILY@1700 [facility] Last Admin: 06/12/21 16:55 Dose: 0.4 mg Documented by: Trazodone HCl (Trazodone Hcl 25 Mg Halftab) 25 mg PO DAILY [facility] Last Admin: 06/13/21 09:42 Dose: 25 mg Documented by: Trazodone HCl (Trazodone Hcl 50 Mg Tablet) 50 mg PO BEDTIME [facility] Last Admin: 06/12/21 21:38 Dose: 50 mg Documented by: Trazodone HCl (Trazodone Hcl 50 Mg Tablet) 50 mg PO BEDTIME PRN PRN Reason: Insomnia Last Admin: 06/10/21 23:07 Dose: 50 mg Documented by: Vitamin D (Cholecalciferol (Vitamin D3) 25 Mcg Tablet) 50 mcg PO DAILY [facility] Last Admin: 06/13/21 09:42 Dose: 50 mcg Documented by: Allergies Allergies Allergy/AdvReac Type Severity Reaction Status Date / Time lactose AdvReac Diarrhea Verified 06/04/21 13:17 Assessment & Plan Assessment & Plan (1) Psychosis: Qualifiers: Psychosis type: unspecified psychosis type Qualified Code(s): F29 - Unspecified psychosis not due to a substance or known physiological condition Status: Acute Code(s): F29 - Unspecified psychosis not due to a substance or known physiological condition (2) Dementia: Qualifiers: Dementia behavioral disturbance: with behavioral disturbance Dementia type: unspecified type Qualified Code(s): F03.91 - Unspecified dementia with behavioral disturbance Status: Acute Code(s): F03.90 - Unspecified dementia without behavioral disturbance Assessment and Plan: the patient is an elderly male, mostly Israeli speaking with a long history of developmental problems and psychosis. The patient was brought into this facility since he become violent and aggressive after the taper of Valium. Plan 1. Discontinue Valium 2 mg p.o. daily 2. Discontinue Seroquel up to 25 mg po bid but keep Seroquel 50 mg po qhs. 3. Keep Risperdal 1 mg p.o. b.i.d. I spent minutes with the patient and/or on the patient floor today, greater than?50% of which was spent counseling/coordinating care. Reason for contiued inpatient stay Substantial Risk for: inability to function, rapid decompensation and med/psych decompensation
[2021-06-13 16:55] LABS: Glucose, Whole Blood 264 mg/dL (60-115)
[2021-06-13] MEDS: Insulin Lispro 100 UNIT/ML 3 ML VIAL SUBCUT (17:04)
[2021-06-13] MEDS: Tamsulosin HCL 0.4 MG CAPSULE PO (17:05)
[2021-06-13 19:35] VITALS: BP 179/103; BP 190/101; PULSE 82; PULSE 89; RESP 18; TEMP 36.6; O2SAT 99
[2021-06-13] MEDS: Nitroglycerin 0.4 MG TAB.SUBL SUBLINGUAL (19:39)
[2021-06-13 19:50] VITALS: BP 130/71; PULSE 100
[2021-06-13 19:55] VITALS: BP 117/75; PULSE 94
--- NOTE | 2021-06-13 20:01 | PM.EVENT ---
Event Note Date of Service: 06/13/21 Event Note: nursing informed credit underwriter that 19:30 Patient complained of chest pain; Blood pressure 179/103 though heart rate in the 80s 19:40 Given nitro and blood pressure lowered to 152/81 19:50 patient's blood pressure 130/74, heart rate in the 80s; denies shortness of breath, no diaphoresis, denies jaw claudication or left arm pain however continues to complain of chest pain Ordered EKG and troponins x2 discussed with Dr. Bowles, hospitalist special technical operations officer, who agrees with plan and will follow up
[2021-06-13 20:29] LABS: Glucose, Whole Blood 218 mg/dL (60-115)
[2021-06-13 20:43] LABS: Troponin-I High Sensitivity 8.9 ng/L (<3.5-35.0)
[2021-06-13] MEDS: QUEtiapine Fumarate 50 MG TABLET PO (21:02)
[2021-06-13] MEDS: Insulin Glargine,Hum.rec.anlog 100 UNIT/ML 10 ML VIAL 10 UNIT SUBCUT (21:02)
[2021-06-13] MEDS: traZODone HCL 50 MG TABLET PO (21:02)
--- NOTE | 2021-06-13 22:17 | PC.NURSE ---
At 19:35, pt c/o chest left sided chest pain; pt described it as tight. Vital signs at that time, bp 179/103 R. arm and 190/101 with hr in 80s. pt appeared to be in distress. prn 0.4mg nitro given and vitals re-assessed bp 152/81 and 130/79 with hr in 100s. MD notified and stat troponin and ekg ordered. pt at this time reports relief of symptoms
[2021-06-14 06:00] VITALS: BP 134/72; PULSE 77; RESP 14; TEMP 36.7; O2SAT 95
[2021-06-14 06:49] LABS: Glucose, Whole Blood 142 mg/dL (60-115)
[2021-06-14] MEDS: Metoprolol Succinate ER 50 MG TAB.ER.24H 150 MG PO (09:16)
[2021-06-14] MEDS: Famotidine 20 MG TABLET 40 MG PO (09:16)
[2021-06-14] MEDS: risperiDONE 1 MG TABLET PO ×2 (09:16→20:13)
[2021-06-14] MEDS: Cholecalciferol (Vitamin D3) 25 MCG TABLET 50 MCG PO (09:16)
[2021-06-14] MEDS: Multivitamin TABLET 1 TAB PO (09:16)
[2021-06-14] MEDS: Omeprazole 20 MG CAPSULE.DR PO (09:16)
[2021-06-14] MEDS: traZODone HCL 25 MG HALFTAB PO (09:16)
[2021-06-14] MEDS: Finasteride 5 MG TABLET PO (09:16)
[2021-06-14 11:30] LABS: Glucose, Whole Blood 309 mg/dL (60-115)
[2021-06-14] MEDS: Insulin Lispro 100 UNIT/ML 3 ML VIAL SUBCUT ×2 (11:43→16:35)
--- NOTE | 2021-06-14 14:14 | HO.PSYCHPN ---
Subjective Subjective Date of Service: 06/14/21 Reason For Visit: Psychosis Subjective Notes: Conditional Voluntary Interim History: The nursing staff reports the patient has being cooperative and pleasant, he mumbles sometimes and he speaks on his modoc language unable to be fully nurse to it. On interview the patient was happy that he is going to be discharged pretty soon Mental Status Exam Mental Status Exam Patient Appearance: Disheveled Patient Orientation: Person Level of Consciousness: Awake Patient Behavior: Guarded and Cooperative Mood Description: Constricted Affect Description: Constricted Patient Cognition Impaired: Yes Ability to Follow Directions: Good Speech Pattern: Appropriate Hallucinations: None Delusions: Not Present Thought Process: Linear and Slowed Thinking Thought Content: positive for Circumstantial and positive for Poverty of Content Judgement: Fair Diagnostics Vital Signs (24Hr): Vital Signs - 24 hr 06/13/21 19:35 06/13/21 19:50 06/13/21 19:55 Temperature 97.8 F Pulse Rate 89 100 94 Respiratory Rate 18 Blood Pressure 190/101 H 130/71 117/75 Pulse Oximetry 99 06/14/21 06:00 Temperature 98.0 F Pulse Rate 77 Respiratory Rate 14 Blood Pressure 134/72 Pulse Oximetry 95 BMI result Body Mass Index 24.3 Labs Results: 05/31/21 11:48 05/31/21 11:48 Labs: Laboratory Results - last 48 hr 06/12/21 06/12/21 06/13/21 16:47 21:14 05:08 POC Glucose 258 H 230 H 157 H Troponin I High Sens 06/13/21 06/13/21 06/13/21 09:34 11:55 16:51 POC Glucose 160 H 210 H 264 H Troponin I High Sens 06/13/21 06/13/21 06/13/21 20:18 20:19 22:39 POC Glucose 218 H Troponin I High Sens 8.9 9.0 06/14/21 06/14/21 06:34 11:25 POC Glucose 142 H 309 H Troponin I High Sens Imaging Radiology Impressions: ITS Impressions Chest X-Ray 05/31/21 12:18 IMPRESSION: No evidence for acute disease in the chest. Bibasilar atelectasis. No definite pneumonia is seen. Head CT 05/31/21 12:59 IMPRESSION: No acute intracranial pathology. Generalized atrophy and nonspecific periventricular white matter disease. Abdomen Ultrasound 05/31/21 13:10 IMPRESSION: Mild hepatic steatosis and hepatomegaly. No focal lesion seen. Visualized slightly contracted gallbladder, CBD and right kidneys unremarkable. Medications Medications Current Medications Acetaminophen (Acetaminophen 325 Mg Tablet) 975 mg PO Q8H PRN PRN Reason: Pain (Scale Score 7-10) Acetaminophen (Acetaminophen 325 Mg Tablet) 650 mg PO Q6H PRN PRN Reason: Headache/Pain Mild Scale (1-3) Al Hydroxide/Mg Hydroxide (Magnesium Hydrox/Alum Hydrox 30 Ml Oral.Susp) 30 ml PO Q6H PRN PRN Reason: Heartburn/Nausea Dextrose (Dextrose 50 % 25 Gm/50 Ml Vial) 25 gm IVPUSH Q15M PRN; Protocol PRN Reason: per Hypoglycemia Standing Ord. Famotidine (Famotidine 20 Mg Tablet) 40 mg PO DAILY [facility] Last Admin: 06/14/21 09:16 Dose: 40 mg Documented by: Finasteride (Finasteride 5 Mg Tablet) 5 mg PO DAILY [facility] Last Admin: 06/14/21 09:16 Dose: 5 mg Documented by: Glucose (Glucose Gel 15 Gm Gel..Gram.) 15 gm PO Q15M PRN; Protocol PRN Reason: per Hypoglycemia Standing Ord. Insulin Glargine (Insulin Glargine,Hum.Rec.Anlog 100 Unit/Ml 10 Ml Vial) 10 unit SUBCUT BEDTIME [facility] Last Admin: 06/13/21 21:02 Dose: 10 unit Documented by: Insulin Human Lispro (Insulin Lispro 100 Unit/Ml 3 Ml Vial) 0 unit SUBCUT QIDACHS [facility]; Protocol Last Admin: 06/14/21 11:43 Dose: 8 unit Documented by: Loperamide HCl (Loperamide Hcl 2 Mg Capsule) 4 mg PO Q6H PRN PRN Reason: diarrhea Last Admin: 06/09/21 12:30 Dose: 4 mg Documented by: Magnesium Hydroxide (Milk Of Magnesia 30 Ml Oral.Susp) 30 ml PO DAILY PRN PRN Reason: Constipation Metoprolol Succinate (Metoprolol Succinate Er 50 Mg Tab.Er.24h) 150 mg PO DAILY [facility]; Protocol Last Admin: 06/14/21 09:16 Dose: 150 mg Documented by: Multivitamins/Vitamin C (Multivitamin Tablet) 1 tab PO DAILY [facility] Last Admin: 06/14/21 09:16 Dose: 1 tab Documented by: Nitroglycerin (Nitroglycerin 0.4 Mg Tab.Subl) 0.4 mg SUBLINGUAL Q5M PRN PRN Reason: Chest Pain Last Admin: 06/13/21 19:39 Dose: 0.4 mg Documented by: Omeprazole (Omeprazole 20 Mg Capsule.) 20 mg PO DAILY [facility] Last Admin: 06/14/21 09:16 Dose: 20 mg Documented by: Psyllium Hydrophilic Mucilloid (Psyllium Seed 3.4 Gm Powd.Pack) 3.4 gm PO MOWEFR@0900 [facility] Last Admin: 06/14/21 09:17 Dose: 3.4 gm Documented by: Quetiapine Fumarate (Quetiapine Fumarate 50 Mg Tablet) 50 mg PO BEDTIME [facility] Last Admin: 06/13/21 21:02 Dose: 50 mg Documented by: Risperidone (Risperidone 1 Mg Tablet) 1 mg PO BID [facility] Last Admin: 06/14/21 09:16 Dose: 1 mg Documented by: Sodium Chloride (Sodium Chloride 0.65 % Nasal 44 Ml Sprbtl) 1 spray NOSTRIL-B Q1H PRN PRN Reason: Dry Nasal Passages Tamsulosin HCl (Tamsulosin Hcl 0.4 Mg Capsule) 0.4 mg PO DAILY@1700 [facility] Last Admin: 06/13/21 17:05 Dose: 0.4 mg Documented by: Trazodone HCl (Trazodone Hcl 25 Mg Halftab) 25 mg PO DAILY [facility] Last Admin: 06/14/21 09:16 Dose: 25 mg Documented by: Trazodone HCl (Trazodone Hcl 50 Mg Tablet) 50 mg PO BEDTIME [facility] Last Admin: 06/13/21 21:02 Dose: 50 mg Documented by: Trazodone HCl (Trazodone Hcl 50 Mg Tablet) 50 mg PO BEDTIME PRN PRN Reason: Insomnia Last Admin: 06/10/21 23:07 Dose: 50 mg Documented by: Vitamin D (Cholecalciferol (Vitamin D3) 25 Mcg Tablet) 50 mcg PO DAILY [facility] Last Admin: 06/14/21 09:16 Dose: 50 mcg Documented by: Allergies Allergies Allergy/AdvReac Type Severity Reaction Status Date / Time lactose AdvReac Diarrhea Verified 06/04/21 13:17 Assessment & Plan Assessment & Plan (1) Psychosis: Qualifiers: Psychosis type: unspecified psychosis type Qualified Code(s): F29 - Unspecified psychosis not due to a substance or known physiological condition Status: Acute Code(s): F29 - Unspecified psychosis not due to a substance or known physiological condition (2) Dementia: Qualifiers: Dementia behavioral disturbance: with behavioral disturbance Dementia type: unspecified type Qualified Code(s): F03.91 - Unspecified dementia with behavioral disturbance Status: Acute Code(s): F03.90 - Unspecified dementia without behavioral disturbance Assessment and Plan: the patient is an elderly male, mostly Azeri speaking with a long history of developmental problems and psychosis. The patient was brought into this facility since he become violent and aggressive after the taper of Valium. Plan 1. Discontinue Valium 2 mg p.o. daily 2. Discontinue Seroquel up to 25 mg po bid but keep Seroquel 50 mg po qhs. 3. Keep Risperdal 1 mg p.o. b.i.d.. 4. for discharge next Thursday I spent minutes with the patient and/or on the patient floor today, greater than?50% of which was spent counseling/coordinating care. Reason for contiued inpatient stay Substantial Risk for: inability to function, rapid decompensation and med/psych decompensation
[2021-06-14 15:30] VITALS: BP 157/75; PULSE 65; TEMP 36.1; O2SAT 99
[2021-06-14 15:53] VITALS: BP 157/75; PULSE 65
[2021-06-14] MEDS: Nitroglycerin 0.4 MG TAB.SUBL SUBLINGUAL ×2 (15:53→21:12)
[2021-06-14 16:15] VITALS: BP 143/78; PULSE 72; TEMP 36.2
--- NOTE | 2021-06-14 16:18 | PC.NURSE ---
Pt complaining of left sided chest pain. Pt had EKG and trop labs done yesterday...wnl. Pt given o.4 mg of nitro with good effect. At 15:50 vitals signs taken T.97 RR18 BP 157/75 P 65 O2 sat 99. Spoke with patient family member and she reported that patient stated he felt better from medication. Pt vitals were taken again at 14:15. T 97.1 RR16 BP 143/78 P 72 O2 Stat 99.
[2021-06-14 16:25] LABS: Glucose, Whole Blood 220 mg/dL (60-115)
[2021-06-14] MEDS: Tamsulosin HCL 0.4 MG CAPSULE PO (16:35)
[2021-06-14] MEDS: traZODone HCL 50 MG TABLET PO (20:13)
[2021-06-14] MEDS: QUEtiapine Fumarate 50 MG TABLET PO (20:14)
[2021-06-14 21:05] VITALS: BP 142/75; PULSE 78; RESP 16; TEMP 36.4; O2SAT 98
[2021-06-14 21:12] VITALS: BP 142/75; PULSE 78
[2021-06-14 21:58] LABS: Glucose, Whole Blood 224 mg/dL (60-115)
[2021-06-15 08:25] LABS: Glucose, Whole Blood 156 mg/dL (60-115)
[2021-06-15 09:30] VITALS: BP 157/89; PULSE 73; RESP 16; TEMP 36.1; O2SAT 97
--- NOTE | 2021-06-15 15:09 | P.PNPSI_ITS ---
Subjective Subjective Date of Service: 06/15/21 Reason For Visit: Psychosis Subjective Notes: Conditional Voluntary Healthcare Proxy: Yes Interim History: Record reviewed. Discussed with nursing staff. Noted background history of developmental delay. Patient seen after shower, that he allowed staff to help him with. Reported that he wants to go home. Otherwise had no complaints. Did not appear to fully understand current admission circumstances or discharge plans, which is consistent with baseline. Is adherent with current treatment in-hospital setting. Medication Compliance: Yes Side effects from medications: No Attending Groups: No Review of Systems Acute medical concerns: No Review of Systems Review of Systems Nothing new Mental Status Exam Mental Status Exam Narrative: was seen in the hallway walking use in walking frame. Self-care was good having shared. In Room, patient had minimal engagement. Just stated that he wanted to go home. Was very concrete consistent with baseline of developmental delay. No evidence of depression SI HI and aggression or agitation. No overt psychosis. Insight and judgment consistent with cognition. Diagnostics Vital Signs (24Hr): Vital Signs - 24 hr 06/14/21 15:30 06/14/21 15:53 06/14/21 16:15 Temperature 97.0 F 97.1 F Pulse Rate 65 65 72 Respiratory Rate Blood Pressure 157/75 H 157/75 H 143/78 H Pulse Oximetry 99 06/14/21 21:05 06/14/21 21:12 06/15/21 09:30 Temperature 97.6 F 96.9 F Pulse Rate 78 78 73 Respiratory Rate 16 16 Blood Pressure 142/75 H 142/75 H 157/89 H Pulse Oximetry 98 97 BMI result Body Mass Index 24.3 Labs Results: 05/31/21 11:48 05/31/21 11:48 Labs: Laboratory Results - last 48 hr 06/13/21 06/13/21 06/13/21 16:51 20:18 20:19 POC Glucose 264 H 218 H Troponin I High Sens 8.9 06/13/21 06/14/21 06/14/21 22:39 06:34 11:25 POC Glucose 142 H 309 H Troponin I High Sens 9.0 06/14/21 06/14/21 06/15/21 16:21 20:29 08:16 POC Glucose 220 H 224 H 156 H Troponin I High Sens Imaging Radiology Impressions: ITS Impressions Chest X-Ray 05/31/21 12:18 IMPRESSION: No evidence for acute disease in the chest. Bibasilar atelectasis. No definite pneumonia is seen. Head CT 05/31/21 12:59 IMPRESSION: No acute intracranial pathology. Generalized atrophy and nonspecific periventricular white matter disease. Abdomen Ultrasound 05/31/21 13:10 IMPRESSION: Mild hepatic steatosis and hepatomegaly. No focal lesion seen. Visualized slightly contracted gallbladder, CBD and right kidneys unremarkable. Medications Medications Current Medications Acetaminophen (Acetaminophen 325 Mg Tablet) 975 mg PO Q8H PRN PRN Reason: Pain (Scale Score 7-10) Acetaminophen (Acetaminophen 325 Mg Tablet) 650 mg PO Q6H PRN PRN Reason: Headache/Pain Mild Scale (1-3) Al Hydroxide/Mg Hydroxide (Magnesium Hydrox/Alum Hydrox 30 Ml Oral.Susp) 30 ml PO Q6H PRN PRN Reason: Heartburn/Nausea Dextrose (Dextrose 50 % 25 Gm/50 Ml Vial) 25 gm IVPUSH Q15M PRN; Protocol PRN Reason: per Hypoglycemia Standing Ord. Famotidine (Famotidine 20 Mg Tablet) 40 mg PO DAILY [facility] Last Admin: 06/15/21 12:02 Dose: Not Given Documented by: Finasteride (Finasteride 5 Mg Tablet) 5 mg PO DAILY [facility] Last Admin: 06/15/21 12:02 Dose: Not Given Documented by: Glucose (Glucose Gel 15 Gm Gel..Gram.) 15 gm PO Q15M PRN; Protocol PRN Reason: per Hypoglycemia Standing Ord. Insulin Glargine (Insulin Glargine,Hum.Rec.Anlog 100 Unit/Ml 10 Ml Vial) 10 unit SUBCUT BEDTIME [facility] Last Admin: 06/14/21 20:56 Dose: Not Given Documented by: Insulin Human Lispro (Insulin Lispro 100 Unit/Ml 3 Ml Vial) 0 unit SUBCUT QIDACHS [facility]; Protocol Last Admin: 06/15/21 12:08 Dose: Not Given Documented by: Loperamide HCl (Loperamide Hcl 2 Mg Capsule) 4 mg PO Q6H PRN PRN Reason: diarrhea Last Admin: 06/09/21 12:30 Dose: 4 mg Documented by: Magnesium Hydroxide (Milk Of Magnesia 30 Ml Oral.Susp) 30 ml PO DAILY PRN PRN Reason: Constipation Metoprolol Succinate (Metoprolol Succinate Er 50 Mg Tab.Er.24h) 150 mg PO DAILY [facility]; Protocol Last Admin: 06/15/21 12:02 Dose: Not Given Documented by: Multivitamins/Vitamin C (Multivitamin Tablet) 1 tab PO DAILY [facility] Last Admin: 06/15/21 12:02 Dose: Not Given Documented by: Nitroglycerin (Nitroglycerin 0.4 Mg Tab.Subl) 0.4 mg SUBLINGUAL Q5M PRN PRN Reason: Chest Pain Last Admin: 06/14/21 21:12 Dose: 0.4 mg Documented by: Omeprazole (Omeprazole 20 Mg Capsule.Dr) 20 mg PO DAILY [facility] Last Admin: 06/15/21 12:02 Dose: Not Given Documented by: Psyllium Hydrophilic Mucilloid (Psyllium Seed 3.4 Gm Powd.Pack) 3.4 gm PO MOWEFR@0900 [facility] Last Admin: 06/14/21 09:17 Dose: 3.4 gm Documented by: Quetiapine Fumarate (Quetiapine Fumarate 50 Mg Tablet) 50 mg PO BEDTIME [facility] Last Admin: 06/14/21 20:14 Dose: 50 mg Documented by: Risperidone (Risperidone 1 Mg Tablet) 1 mg PO BID [facility] Last Admin: 06/15/21 12:03 Dose: Not Given Documented by: Sodium Chloride (Sodium Chloride 0.65 % Nasal 44 Ml Sprbtl) 1 spray NOSTRIL-B Q1H PRN PRN Reason: Dry Nasal Passages Tamsulosin HCl (Tamsulosin Hcl 0.4 Mg Capsule) 0.4 mg PO DAILY@1700 [facility] Last Admin: 06/14/21 16:35 Dose: 0.4 mg Documented by: Trazodone HCl (Trazodone Hcl 25 Mg Halftab) 25 mg PO DAILY [facility] Last Admin: 06/15/21 12:08 Dose: Not Given Documented by: Trazodone HCl (Trazodone Hcl 50 Mg Tablet) 50 mg PO BEDTIME [facility] Last Admin: 06/14/21 20:13 Dose: 50 mg Documented by: Trazodone HCl (Trazodone Hcl 50 Mg Tablet) 50 mg PO BEDTIME PRN PRN Reason: Insomnia Last Admin: 06/10/21 23:07 Dose: 50 mg Documented by: Vitamin D (Cholecalciferol (Vitamin D3) 25 Mcg Tablet) 50 mcg PO DAILY [facility] Last Admin: 06/15/21 12:01 Dose: Not Given Documented by: Allergies Allergies Allergy/AdvReac Type Severity Reaction Status Date / Time lactose AdvReac Diarrhea Verified 06/04/21 13:17 Assessment & Plan Assessment & Plan (1) Psychosis: Qualifiers: Psychosis type: unspecified psychosis type Qualified Code(s): F29 - Unspecified psychosis not due to a substance or known physiological condition Status: Acute Code(s): F29 - Unspecified psychosis not due to a substance or known physiological condition (2) Dementia: Qualifiers: Dementia behavioral disturbance: with behavioral disturbance Dementia type: unspecified type Qualified Code(s): F03.91 - Unspecified dementia with behavioral disturbance Status: Acute Code(s): F03.90 - Unspecified dementia without behavioral disturbance Assessment and Plan: the patient is an elderly male, mostly Mauritanian speaking with a long history of developmental problems and psychosis. The patient was brought into this facility since he become violent and aggressive after the taper of Valium. Plan 1. Discontinue Valium 2 mg p.o. daily 2. Discontinue Seroquel up to 25 mg po bid but keep Seroquel 50 mg po qhs. 3. Keep Risperdal 1 mg p.o. b.i.d.. 4. for discharge next Thursday06/15/2021: No change to primary team's treatment plan I spent minutes with the patient and/or on the patient floor today, greater than?50% of which was spent counseling/coordinating care. Reason for contiued inpatient stay Substantial Risk for: rapid decompensation
[2021-06-15 16:53] LABS: Glucose, Whole Blood 348 mg/dL (60-115)
[2021-06-15] MEDS: Tamsulosin HCL 0.4 MG CAPSULE PO (16:54)
[2021-06-15] MEDS: Insulin Lispro 100 UNIT/ML 3 ML VIAL SUBCUT (16:54)
[2021-06-15 18:00] VITALS: BP 100/55; PULSE 101; RESP 18; TEMP 36.4; O2SAT 97
[2021-06-15 18:13] VITALS: BP 129/76; PULSE 105
[2021-06-15] MEDS: Nitroglycerin 0.4 MG TAB.SUBL SUBLINGUAL ×2 (18:13→20:44)
--- NOTE | 2021-06-15 18:25 | PC.NURSE ---
Patient was complaining about chest pain. BP: 129/76, Pls : 105, Spo2: 98. Nytrostat 0.4 mg given sublingual PRN. MD notified . Patient will continue to monitor.
[2021-06-15 20:44] VITALS: BP 160/58; PULSE 88
[2021-06-15 21:00] LABS: Glucose, Whole Blood 128 mg/dL (60-115)
[2021-06-15] MEDS: traZODone HCL 50 MG TABLET PO (21:03)
[2021-06-15] MEDS: QUEtiapine Fumarate 50 MG TABLET PO (21:03)
[2021-06-15] MEDS: risperiDONE 1 MG TABLET PO (21:04)
[2021-06-16 10:25] LABS: Glucose, Whole Blood 160 mg/dL (60-115)
[2021-06-16] MEDS: Insulin Lispro 100 UNIT/ML 3 ML VIAL SUBCUT ×2 (10:31→20:42)
--- NOTE | 2021-06-16 10:50 | P.PNPSI_ITS ---
Subjective Subjective Date of Service: 06/16/21 Reason For Visit: Psychosis Subjective Notes: Conditional Voluntary Healthcare Proxy: Yes Interim History: Discussed with nursing staff. Noted background history of developmental delay. noted chest discomfort yesterday relieved by nitro. Had been making statements about he will . Today declined to engage in interview Reporting he wants to be discharged. Attempted to meet with patient 3 times. Is adherent with current treatment in-hospital setting. Medication Compliance: Yes Side effects from medications: No Attending Groups: No Review of Systems Acute medical concerns: No Review of Systems Review of Systems Nothing new- intermittent chest discomfort relieved by nitro. Has been medically worked up for same and unremarkable. Mental Status Exam Mental Status Exam Narrative: In Room, patient had minimal engagement. Just stated that he wanted to go home and declined to engage. No evidence of depression SI HI and aggression or agitation. No overt psychosis. Insight and judgment consistent with cognition. Diagnostics Vital Signs (24Hr): Vital Signs - 24 hr 06/15/21 18:00 06/15/21 18:13 06/15/21 20:44 Temperature 97.6 F Pulse Rate 101 H 105 H 88 Respiratory Rate 18 Blood Pressure 100/55 L 129/76 160/58 H Pulse Oximetry 97 BMI result Body Mass Index 24.3 Labs Results: 05/31/21 11:48 05/31/21 11:48 Labs: Laboratory Results - last 48 hr 06/14/21 06/14/21 06/14/21 11:25 16:21 20:29 POC Glucose 309 H 220 H 224 H 06/15/21 06/15/21 06/15/21 08:16 16:50 20:49 POC Glucose 156 H 348 H 128 H 06/16/21 08:39 POC Glucose 160 H Imaging Radiology Impressions: ITS Impressions Chest X-Ray 05/31/21 12:18 IMPRESSION: No evidence for acute disease in the chest. Bibasilar atelectasis. No definite pneumonia is seen. Head CT 05/31/21 12:59 IMPRESSION: No acute intracranial pathology. Generalized atrophy and nonspecific periventricular white matter disease. Abdomen Ultrasound 05/31/21 13:10 IMPRESSION: Mild hepatic steatosis and hepatomegaly. No focal lesion seen. Visualized slightly contracted gallbladder, CBD and right kidneys unremarkable. Medications Medications Current Medications Acetaminophen (Acetaminophen 325 Mg Tablet) 975 mg PO Q8H PRN PRN Reason: Pain (Scale Score 7-10) Acetaminophen (Acetaminophen 325 Mg Tablet) 650 mg PO Q6H PRN PRN Reason: Headache/Pain Mild Scale (1-3) Al Hydroxide/Mg Hydroxide (Magnesium Hydrox/Alum Hydrox 30 Ml Oral.Susp) 30 ml PO Q6H PRN PRN Reason: Heartburn/Nausea Dextrose (Dextrose 50 % 25 Gm/50 Ml Vial) 25 gm IVPUSH Q15M PRN; Protocol PRN Reason: per Hypoglycemia Standing Ord. Famotidine (Famotidine 20 Mg Tablet) 40 mg PO DAILY [facility] Last Admin: 06/16/21 10:11 Dose: Not Given Documented by: Finasteride (Finasteride 5 Mg Tablet) 5 mg PO DAILY [facility] Last Admin: 06/16/21 10:12 Dose: Not Given Documented by: Glucose (Glucose Gel 15 Gm Gel..Gram.) 15 gm PO Q15M PRN; Protocol PRN Reason: per Hypoglycemia Standing Ord. Insulin Glargine (Insulin Glargine,Hum.Rec.Anlog 100 Unit/Ml 10 Ml Vial) 10 unit SUBCUT BEDTIME [facility] Last Admin: 06/15/21 22:09 Dose: Not Given Documented by: Insulin Human Lispro (Insulin Lispro 100 Unit/Ml 3 Ml Vial) 0 unit SUBCUT QIDACHS [facility]; Protocol Last Admin: 06/16/21 10:31 Dose: 2 unit Documented by: Loperamide HCl (Loperamide Hcl 2 Mg Capsule) 4 mg PO Q6H PRN PRN Reason: diarrhea Last Admin: 06/09/21 12:30 Dose: 4 mg Documented by: Magnesium Hydroxide (Milk Of Magnesia 30 Ml Oral.Susp) 30 ml PO DAILY PRN PRN Reason: Constipation Metoprolol Succinate (Metoprolol Succinate Er 50 Mg Tab.Er.24h) 150 mg PO DAILY [facility]; Protocol Last Admin: 06/16/21 10:12 Dose: Not Given Documented by: Multivitamins/Vitamin C (Multivitamin Tablet) 1 tab PO DAILY [facility] Last Admin: 06/16/21 10:13 Dose: Not Given Documented by: Nitroglycerin (Nitroglycerin 0.4 Mg Tab.Subl) 0.4 mg SUBLINGUAL Q5M PRN PRN Reason: Chest Pain Last Admin: 06/15/21 20:44 Dose: 1 tab Documented by: Omeprazole (Omeprazole 20 Mg Capsule.Dr) 20 mg PO DAILY [facility] Last Admin: 06/16/21 10:13 Dose: Not Given Documented by: Psyllium Hydrophilic Mucilloid (Psyllium Seed 3.4 Gm Powd.Pack) 3.4 gm PO MOWEFR@0900 [facility] Last Admin: 06/14/21 09:17 Dose: 3.4 gm Documented by: Quetiapine Fumarate (Quetiapine Fumarate 50 Mg Tablet) 50 mg PO BEDTIME [facility] Last Admin: 06/15/21 21:03 Dose: 50 mg Documented by: Risperidone (Risperidone 1 Mg Tablet) 1 mg PO BID [facility] Last Admin: 06/16/21 10:13 Dose: Not Given Documented by: Sodium Chloride (Sodium Chloride 0.65 % Nasal 44 Ml Sprbtl) 1 spray NOSTRIL-B Q1H PRN PRN Reason: Dry Nasal Passages Tamsulosin HCl (Tamsulosin Hcl 0.4 Mg Capsule) 0.4 mg PO DAILY@1700 [facility] Last Admin: 06/15/21 16:54 Dose: 0.4 mg Documented by: Trazodone HCl (Trazodone Hcl 25 Mg Halftab) 25 mg PO DAILY [facility] Last Admin: 06/16/21 10:13 Dose: Not Given Documented by: Trazodone HCl (Trazodone Hcl 50 Mg Tablet) 50 mg PO BEDTIME [facility] Last Admin: 06/15/21 21:03 Dose: 50 mg Documented by: Trazodone HCl (Trazodone Hcl 50 Mg Tablet) 50 mg PO BEDTIME PRN PRN Reason: Insomnia Last Admin: 06/10/21 23:07 Dose: 50 mg Documented by: Vitamin D (Cholecalciferol (Vitamin D3) 25 Mcg Tablet) 50 mcg PO DAILY [facility] Last Admin: 06/16/21 10:11 Dose: Not Given Documented by: Allergies Allergies Allergy/AdvReac Type Severity Reaction Status Date / Time lactose AdvReac Diarrhea Verified 06/04/21 13:17 Assessment & Plan Assessment & Plan (1) Psychosis: Qualifiers: Psychosis type: unspecified psychosis type Qualified Code(s): F29 - Unspecified psychosis not due to a substance or known physiological condition Status: Acute Code(s): F29 - Unspecified psychosis not due to a substance or known physiological condition (2) Dementia: Qualifiers: Dementia behavioral disturbance: with behavioral disturbance Dementia type: unspecified type Qualified Code(s): F03.91 - Unspecified dementia with behavioral disturbance Status: Acute Code(s): F03.90 - Unspecified dementia without behavioral disturbance Assessment and Plan: the patient is an elderly male, mostly [place] speaking with a long history of developmental problems and psychosis. The patient was brought into this facility since he become violent and aggressive after the taper of Valium. Plan 1. Discontinue Valium 2 mg p.o. daily 2. Discontinue Seroquel up to 25 mg po bid but keep Seroquel 50 mg po qhs. 3. Keep Risperdal 1 mg p.o. b.i.d.. 4. for discharge next Thursday06/16/2021: No change to primary team's treatment plan I spent minutes with the patient and/or on the patient floor today, greater than?50% of which was spent counseling/coordinating care. Reason for contiued inpatient stay Substantial Risk for: inability to function
[2021-06-16 18:35] VITALS: BP 126/78; PULSE 115
[2021-06-16] MEDS: Nitroglycerin 0.4 MG TAB.SUBL SUBLINGUAL (18:35)
--- NOTE | 2021-06-16 18:45 | PC.NURSE ---
Patient was complaining about chest pain at 18:30 PM . BP : 126/78 , Pls: 115 , Spo2: 97. Nitrostat 0.4 mg tab sublingual given. MD notified . Will continue to monitor.
[2021-06-16] MEDS: QUEtiapine Fumarate 50 MG TABLET PO (20:30)
[2021-06-16] MEDS: traZODone HCL 50 MG TABLET PO (20:31)
[2021-06-16] MEDS: risperiDONE 1 MG TABLET PO (20:31)
[2021-06-16] MEDS: LORazepam 0.5 MG TABLET PO (20:31)
[2021-06-16] MEDS: Insulin Glargine,Hum.rec.anlog 100 UNIT/ML 10 ML VIAL 10 UNIT SUBCUT (20:43)
[2021-06-16 20:56] LABS: Glucose, Whole Blood 371 mg/dL (60-115)
[2021-06-16 22:13] VITALS: BP 121/72; PULSE 110; RESP 16; TEMP 36.6; O2SAT 99
--- NOTE | 2021-06-16 23:19 | PC.NURSE ---
Patient is very anxious at the beginning of shift.Patient at first uncooperative w/ his Insulin injection, Patient said, I don't want it because I will .Pt. verbally redirected w/ no effect.Patient talk to her sister,Angella and She was able to convinced him to take his Insulin Injection.Notified Dr. Olvin Caldwell and was given Ativan 0.5mg po w/ good effect.Patient calm and aquiet and able to sleep after taking the Ativan.We'll continue to monitor patient.
--- NOTE | 2021-06-17 00:31 | PC.NURSE ---
Patient's blood sugar at bedtime is 371,Given 10 units of Humalog subcu. Dr. Olvin NEWTON notified w/ no additional coverage ordered.
[2021-06-17 07:30] VITALS: BP 113/61; PULSE 69; RESP 14; TEMP 36.9; O2SAT 96
[2021-06-17 08:14] LABS: Glucose, Whole Blood 174 mg/dL (60-115)
[2021-06-17] MEDS: Insulin Lispro 100 UNIT/ML 3 ML VIAL SUBCUT (08:23)
[2021-06-17] MEDS: Finasteride 5 MG TABLET PO (08:55)
[2021-06-17] MEDS: Cholecalciferol (Vitamin D3) 25 MCG TABLET 50 MCG PO (08:56)
[2021-06-17] MEDS: Famotidine 20 MG TABLET 40 MG PO (08:56)
[2021-06-17] MEDS: risperiDONE 1 MG TABLET PO (08:57)
[2021-06-17] MEDS: Metoprolol Succinate ER 50 MG TAB.ER.24H 150 MG PO (08:57)
[2021-06-17] MEDS: Omeprazole 20 MG CAPSULE.DR PO (08:57)
[2021-06-17] MEDS: Multivitamin TABLET 1 TAB PO (08:57)
[2021-06-17] MEDS: traZODone HCL 25 MG HALFTAB PO (09:04)
--- NOTE | 2021-06-17 10:24 | P.DS_ITS ---
DS: Providers Provider Date of Service: 06/17/21 Date of admission: 05/31/21 21:29 Date of discharge: 06/17/21 Primary care physician: Unknown Physician Consults: 06/05/21 10:58 Consult to Hospitalist Routine Consulting Provider: Hospitalist Reason For Exam: management of DM DS: Diagnosis Discharge Diagnosis (1) Psychosis: Status: Acute (2) Dementia: Status: Acute DS: Medications Discharge Medications Home Medications: Home Medications Medication Instructions Recorded Confirmed acetaminophen 500 mg tablet 1,000 mg PO Q8H PRN 05/31/21 05/31/21 cholecalciferol (vitamin D3) 50 50 mcg PO DAILY 05/31/21 05/31/21 mcg (2,000 unit) capsule (Vitamin D3) dulaglutide 0.75 mg/0.5 mL 0.75 mg SUBCUT QWEEK 05/31/21 05/31/21 subcutaneous pen injector (Trulicity) famotidine 40 mg tablet 40 mg PO DAILY 05/31/21 05/31/21 finasteride 5 mg tablet (Proscar) 5 mg PO DAILY 05/31/21 05/31/21 menthol 5 % topical patch (Icy Hot 1 patch TOPICAL DAILY 05/31/21 05/31/21 (menthol)) metoprolol succinate 100 mg 150 mg PO DAILY 05/31/21 05/31/21 tablet,extended release 24 hr multivitamin 1 tab PO DAILY 05/31/21 05/31/21 nitroglycerin 0.4 mg sublingual 0.4 mg SUBLINGUAL Q5M PRN 05/31/21 05/31/21 tablet pantoprazole 40 mg tablet,delayed 40 mg PO DAILY 05/31/21 05/31/21 release (Protonix) psyllium husk 3.4 gram/5.4 gram 3.4 g PO MOWEFR@0900 05/31/21 05/31/21 oral powder (Metamucil) quetiapine 25 mg tablet 25 mg PO BEDTIME 05/31/21 05/31/21 tamsulosin 0.4 mg capsule (Flomax) 0.4 mg PO DAILY@1700 05/31/21 05/31/21 trazodone 50 mg tablet 25 mg PO DAILY 05/31/21 05/31/21 trazodone 50 mg tablet 50 mg PO BEDTIME 05/31/21 05/31/21 Mental Status Exam Mental Status Exam Patient Appearance: Well Grooomed Patient Orientation: Person Level of Consciousness: Awake Patient Behavior: Cooperative Mood Description: Withdrawn Affect Description: Constricted Patient Cognition Impaired: Yes Ability to Follow Directions: Good Speech Pattern: Appropriate Hallucinations: None Delusions: Not Present Thought Process: Linear Thought Content: positive for Poverty of Content Judgement: Fair Data Data Completed and Pending Completed studies during hospitalization [Text1]: 06/10/21 06/10/21 06/10/21 11:23 17:03 20:32 POC Glucose 330 H 255 H 203 H Troponin I High Sens 06/11/21 06/11/21 06/11/21 06:48 11:56 20:26 POC Glucose 193 H 269 H 305 H Troponin I High Sens 06/12/21 06/12/21 06/12/21 06:37 11:33 16:47 POC Glucose 178 H 274 H 258 H Troponin I High Sens 06/12/21 06/13/21 06/13/21 21:14 05:08 09:34 POC Glucose 230 H 157 H 160 H Troponin I High Sens 06/13/21 06/13/21 06/13/21 11:55 16:51 20:18 POC Glucose 210 H 264 H Troponin I High Sens 8.9 06/13/21 06/13/21 06/14/21 20:19 22:39 06:34 POC Glucose 218 H 142 H Troponin I High Sens 9.0 06/14/21 06/14/21 06/14/21 11:25 16:21 20:29 POC Glucose 309 H 220 H 224 H Troponin I High Sens 06/15/21 06/15/21 06/15/21 08:16 16:50 20:49 POC Glucose 156 H 348 H 128 H Troponin I High Sens 06/16/21 06/16/21 06/17/21 08:39 20:09 08:10 POC Glucose 160 H 371 H* 174 H Troponin I High Sens Imaging Diagnostic Imaging Impressions Chest X-Ray 05/31/21 12:18 IMPRESSION: No evidence for acute disease in the chest. Bibasilar atelectasis. No definite pneumonia is seen. Head CT 05/31/21 12:59 IMPRESSION: No acute intracranial pathology. Generalized atrophy and nonspecific periventricular white matter disease. Abdomen Ultrasound 05/31/21 13:10 IMPRESSION: Mild hepatic steatosis and hepatomegaly. No focal lesion seen. Visualized slightly contracted gallbladder, CBD and right kidneys unremarkable. DS: Summary Hospital Course Hospital Course: the patient was initially admitted for disorganized behavior and elusive thinking. Please see HPI of the admission note for further details. On admission, the patient was on Seroquel 50 mg p.o. q.h.s. and Valium t.i.d.. As per her sister's the Valium has disinhibit him and making more violent. They wa nted to be discontinue. The patient can speak very limited [place] but his primary language is a dialect of [place] that only a few 1000 scans peak so our wire frame maker could not communicate with him. We have to use the family as translators. Her sister, who is very involved in his case. 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 On admission, the patient was very paranoid and scared of the staff but eventually he became cooperative and pleasant. We change his Seroquel to Risperdal titrated up to 1 mg p.o. b.i.d. with for tolerability and good improvement. His paranoia improved, he was pleasant and cooperative and since he was at baseline discharge planning was discussed. Time spent discussing smoking cessation with patient: 3 to 10 minutes Status at Discharge Cognitive/behavioral status at discharge: At baseline Functional status at discharge: independent ambulation Overall status at discharge: patient is back to baseline Time Spent with Patient Time attestation: Total time spent providing and/or coordinating discharge services: Time spent: Less than 30 minutes Discharge Plan Discharge Patient Disposition: Home, Self-Care Discharge Diagnosis: psychotic disorder NOS Referrals: ANGELA Escalera (therapists) [Other] - 06/18/21 10:00 am (next appoimernt scheduled with Amarilis for 06/18/21 @ 10 AM via telehealth.) [facility] [Other] - 07/03/21 1:00 pm (Appointment scheduled with medication prescriber Dru Galicia for 07/03/21 @ 1 PM via telehealth.) Discharge Medications: New risperidone 1 mg Tablet 1 mg PO BID 30 Days Qty: 60 RF: 0 quetiapine 50 mg Tablet 50 mg PO BEDTIME 30 Days Qty: 30 RF: 0 Continued Icy Hot (menthol) 5 % Adhesive Patch,Medicated 1 patch TOPICAL DAILY RF: 0 multivitamin Tablet 1 tab PO DAILY 30 Days Qty: 30 RF: 0 trazodone 50 mg Tablet 50 mg PO BEDTIME 30 Days Qty: 30 RF: 0 famotidine 40 mg Tablet 40 mg PO DAILY 30 Days Qty: 30 RF: 0 metoprolol succinate 100 mg Tablet Extended Release 24 Hr 150 mg PO DAILY 30 Days Qty: 45 RF: 0 acetaminophen 500 mg Tablet 1,000 mg PO Q8H PRN (Reason: Pain (Scale Score 7-10)) 30 Days Qty: 60 RF: 0 tamsulosin [Flomax] 0.4 mg Capsule 0.4 mg PO DAILY@1700 30 Days Qty: 30 RF: 0 pantoprazole [Protonix] 40 mg Tablet,Delayed Release (Dr/Ec) 40 mg PO DAILY 30 Days Qty: 30 RF: 0 nitroglycerin 0.4 mg Tablet, Sublingual 0.4 mg SUBLINGUAL Q5M PRN (Reason: Chest Pain) 30 Days Qty: 30 RF: 0 finasteride [Proscar] 5 mg Tablet 5 mg PO DAILY 30 Days Qty: 30 RF: 0 cholecalciferol (vitamin D3) [Vitamin D3] 50 mcg (2,000 unit) Capsule 50 mcg PO DAILY 30 Days Qty: 30 RF: 0 Trulicity 0.75 mg/0.5 mL Pen Injector 0.75 mg SUBCUT QWEEK 30 Days Qty: 2.5 RF: 0 Metamucil 3.4 gram/5.4 gram Powder 3.4 g PO MOWEFR@0900 30 Days Qty: 44.199 RF: 0 Discontinued quetiapine 25 mg Tablet 25 mg PO BEDTIME RF: 0 trazodone 50 mg Tablet 25 mg PO DAILY RF: 0 Discharge Orders: Discharge Order (Routine); Ordered 06/17/21 Ordered By: Jules Bellamy Diet: advance to usual diet Activity on Discharge: As tolerated Stand Alone Forms: Patient Portal Discharge page Care Plan Goals: care plan goals achieved Health Concerns: continue treatment with primary care physician as an outpatient Plan of Treatment: medication manageme Assessment: the patient was initially admitted for psychotic symptoms that resolved with the addition of risperidone titrated that to 1 mg p.o. b.i.d. and the tapering of Valium that this inhibited. So far, this moment he is at baseline. Ready to be treated as an outpatient
--- NOTE | 2021-06-17 11:16 | PC.NURSE ---
Patient alert and oriented. Aware and ready for discharge. Patient dressed appropriately. Shaved himself this morning in anticipation of d/c. All belongings reviewed and accounted for with patient. Discharge instructions and paper prescriptions prepared and placed in d/c packet. Patient to leave by ambulance for transport to facility.
== END 2021-06-17 11:25 | disposition home or self-care (01) | DRG 885 ==
LOC: HO.ED 17:25 → HO.PGERI 21:48
PROVIDERS: Psychiatry & Neurology Psychiatry; Admitting Provider Psychiatry & Neurology Psychiatry; Emergency Provider Emergency Medicine; Visit Provider Psychiatry & Neurology Psychiatry
DX: F29 Unspecified psychosis not due to a substance or known physiological condition (principal); I10 Essential (primary) hypertension; F03.90 Unspecified dementia, unspecified severity, without behavioral disturbance, psychotic disturbance, mood disturbance, and anxiety; R62.50 Unspecified lack of expected normal physiological development in childhood; R07.9 Chest pain, unspecified; Z20.822 Contact with and (suspected) exposure to COVID-19; Z79.899 Other long term (current) drug therapy
CPT/HCPCS: 36415; 70450; 71045; 76705; 80048; 80076; 80143; 80179; 81003; 82140; 82947; 83735; 84443; 84484; 85025; 87635; 92610; 93005; 96365; 96366; 99285; J3475